=== PATIENT | male | born 1955 | race Caucasian/White ===

== ENCOUNTER → 2024-04-30 06:39 | Day surgery (SDC) | payer OTHER, SELFPAY | LOC: GI 06:39 | PROVIDERS: ATTENDING PHYSICIAN Internal Medicine Gastroenterology; FAMILY PHYSICIAN Internal Medicine | DX: Z12.11 Encounter for screening for malignant neoplasm of colon (principal); Z86.010 Personal history of colon polyps; K64.8 Other hemorrhoids; K57.30 Diverticulosis of large intestine without perforation or abscess without bleeding; K63.5 Polyp of colon; D12.2 Benign neoplasm of ascending colon; D12.3 Benign neoplasm of transverse colon; D12.5 Benign neoplasm of sigmoid colon; K62.1 Rectal polyp | CPT/HCPCS: 45385; 45380; 88305 ==

== ENCOUNTER 2024-11-05 08:15 | Inpatient (IN) | payer OTHER, SELFPAY ==
[2024-11-03 17:45] VITALS: BP 138/58
--- NOTE | 2024-11-03 17:54 | ED.GENMED ---
ED Provider Triage
<Ej Chamberlain Jr., PA-C - Last Filed: 11/04/24 18:25>
-
Patient seen by provider in Triage?: Seen in Triage
Attestation: A medical screening examination has been initiated by a qualified medical provider. Based on the assessment performed at this time, it has been determined that an emergent medical condition may exist and the patient has been informed
that further medical evaluation and possible additional diagnostic testing may be needed.
HPI: 69-year-old male presenting to the emergency department today with concerns of left pelvic and left lower abdominal discomfort over the past 2 days. Has a history of hernia and believes this could be a hernia at this point. No obvious
palpable hernia on examination but does have significant discomfort to the left lower quadrant and left suprapubic region. Plan for CT scan for further assessment.
GENERAL: Alert , in no apparent distress
EYE: No visual abnormalities.
NECK: Trachea midline
ENT: No visible abnormalities.
LUNGS: No acute respiratory distress
NEUROLOGICAL: Alert and oriented
SKIN: Skin intact. No visible changes.
MUSCULOSKELETAL: Moving extremities normally
PSYCH: Normal and appropriate interaction.
This is a medical evaluation conducted in person to initiate diagnostic evaluation and provide initial therapeutics. Please see further documentation by the treating clinician.
History of Present Illness
<Ej Chamberlain Jr., PA-C - Last Filed: 11/04/24 18:25>
General
Chief Complaint: Abdominal Symptoms
Time Seen by Provider: 11/03/24 21:24
<MARTHA Viera - Last Filed: 11/04/24 00:05>
General
Source: patient
Exam Limitations: none
Nursing documentation reviewed up to this point in time: agreed with
History of Present Illness
History of Present Illness:
Patient is a 69-year-old male with past medical history of MDS multiple hernias cholecystectomy who presents to the ER for evaluation of left groin pain. Patient reports on Saturday, 2 days ago he was moving his bowels and felt pain while moving his
bowels into his left groin.
He denies any burning with urination or frequency. He denies any hematuria. He saw his family doctor today and was sent to rule out a possible incarcerated hernia. He reports pain occurs with movement.
He denies any fever or chills. He does have some recent lower back issues/back pain and is a patient of Dr. Hurd at this time. He has been on muscle relaxers. He does complain of back pain presently as well. He however does not feel that this
groin pain radiates from his back. He denies any radiation into his legs. He denies any bowel or bladder incontinence. He reports area is very tender to touch.
Past History
<Ej Chamberlain Jr., PA-C - Last Filed: 11/04/24 18:25>
Past History
ED Past Medical History: Other (Kidney stones)
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
Social History
Tobacco: Smoker
Alcohol: None
Drug: None
Personal: Single
Living: with family
Employment: Other
Family History
Family History: Other
Review of Systems
<MARTHA Viera - Last Filed: 11/04/24 00:05>
Review of Systems
Allergies reviewed?: Yes
All Other Systems: ROS reviewed and negative except as documented in HPI and ROS
Constitutional: Reports no symptoms
Cardiac: Reports no symptoms
ABD/GI: Reports abdominal pain and other (pain in left groin ); Denies nausea or vomiting
: Reports other
Musculoskeletal: Reports no symptoms
Skin: Reports no symptoms
Neurological: Reports no symptoms
Psychiatric: Reports no symptoms
Phy Exam
<MARTHA Viera - Last Filed: 11/04/24 00:05>
General Physical Exam
General Presentation: well appearing
General age: appears stated age
General Skin: warm and dry
General Habitus: normal
General Mental: alert
General Hydration: appears well hydrated
Gastrointestinal Exam
Gastrointestinal Exam: soft and other (+ point tender to left groin region )
Neurological Exam
Neurological Exam: alert and oriented x3
Musculoskeletal Exam
Musculoskeletal Exam: full ROM
Course
<Ej Chamberlain Jr., PA-C - Last Filed: 11/04/24 18:25>
Orders/Labs/Results
Orders:
Orders
11/03/24 17:54
CT Abd/Pel (IV only)-[facility] only Urgent
Comment:
Reason For Exam: left abd/pel pain hx of hernia
11/03/24 18:03
Complete Blood Count/With Diff Urgent
Lactic Acid Urgent
11/03/24 18:04
Comprehensive Metabolic Panel Urgent
11/03/24 18:17
Urinalysis Reflex To Culture Urgent
Date Specimen was Collected: 11/03/24
Time Specimen was Collected: 18:17
Urine Microscopic Reflex Cult Urgent
Urine Culture Urgent
JACKELINE Source: U
Specimen Description:
Date Specimen was Collected: 11/03/24
Time Specimen was Collected: 18:17
11/03/24 21:49
Ketorolac [Toradol] 30 mg IV NOW STA
11/03/24 22:51
Morphine Sulfate 4 mg IV NOW STA
11/03/24 22:53
UA Reflex to Culture [Urinalysis Reflex To Culture] Urgent
Date Specimen was Collected: 11/03/24
Time Specimen was Collected: 22:52
Urine Microscopic Reflex Cult Urgent
11/04/24 00:05
Admit/Transfer Patient As Directed
Co-Sign Provider:
Level of Care: Observation services
Assign to:: Medical/Surgical
Physician / Group: hospitalist
Diagnosis: ambulatory dysfunction
Code Status As Directed
Resuscitation Status: Full Code
PRN Pain Medication Management As Directed
May give lesser potent ordered pain med per pt: Yes
preference::
Protocol:: Medication orders for pain may be administered in a
manner that supports deferring to patient preference
when the pt is:
- Requesting an ordered lesser potent pain medication.
Least to most potent pain medications are defined
as: acetaminophen < NSAID < tramadol < opioids
(morphine, oxycodone, hydromorphone).
- Requesting a lesser dose of the same medication IF
ORDERED.
- Requesting a less intrusive route of administration
if both routes are prescribed by the provider (PO <
IV).
11/04/24 00:35
Acetaminophen [Tylenol] 650 mg PO Q4HPRN PRN
Bisacodyl [Dulcolax] 10 mg RECTAL [id number] PRN
Docusate W/Senna [Senokot-S] 1 tablet PO BIDPRN PRN
HYDROmorphone [Dilaudid] 0.5 mg IV Q4HPRN PRN
Ketorolac [Toradol] 10 mg IV Q6HPRN PRN
Ondansetron Injectable [Zofran] 4 mg IV Q6HPRN PRN
Polyethylene Glycol Powder [Miralax] 17 grams PO DAILYPRN PRN
11/04/24 00:35
Activity As Directed
Activity Level: With Assistance
Vital Signs As Directed
Frequency: Per unit guidelines
Pt Eval And Treat Routine
Activity Level: With Assistance
DX Deep Vein Thrombosis Video Routine
11/04/24 01:00
Flush (0.9% Sodium Chloride) [Flush (Nss)] See Dose Instructions IV PER PROTOCOL
11/04/24 Breakfast
Regular
At Your Request: Full Participation
11/04/24 06:22
Basic Metabolic Panel IN AM
Complete Blood Count/No Diff IN AM
Ferritin IN AM
Iron IN AM
TSH IN AM
Total Iron Binding IN AM
Vitamin B12 IN AM
11/04/24 08:00
Bupropion(24Hr)Extended Releas [WELLBUTRIN XL (24 hour extended release)] 300 mg PO DAILY
Pantoprazole [Protonix] 40 mg PO BID
11/04/24 18:00
Enoxaparin Sodium [Lovenox] 40 mg SC QPM
Tamsulosin [Flomax] 0.4 mg PO QPM
Abnormal Lab Results
11/03/24 11/03/24 11/03/24
18:03 18:04 18:17
RBC 2.43 L 10^6/uL
(4.70-6.10)
Hgb 8.3 L g/dL
(13.0-18.0)
Hct 25.4 L %
(39.0-52.0)
MCV 104.5 H fL
(80.0-94.0)
MCH 34.2 H pg
(27.0-31.0)
MCHC 32.7 L g/dL
(33.0-37.0)
RDW 26.5 H %
(11.5-14.5)
Absolute Monos (auto) 0.8 H 10^3/uL
(0.1-0.6)
Monocytes % 10.0 H %
(1.7-9.3)
Sodium 134 L mmol/L
(135-145)
BUN 21 H mg/dl
(9-20)
Glucose 105 H mg/dl
(70-99)
Ur Occult Blood Reflex 2+ A
(Negative)
Urine Urobilinogen 2+ A
(Neg - 1+)
Leukocyte Esterase Rfl 1+ A
(Negative)
Urine RBC 3-6 A /HPF
(0-2)
Urine Bacteria (Reflex) Few A
(Negative)
Urine Albumin (Reflex) 2+ A
(Neg - Trace)
11/03/24
22:53
RBC
Hgb
Hct
MCV
MCH
MCHC
RDW
Absolute Monos (auto)
Monocytes %
Sodium
BUN
Glucose
Ur Occult Blood Reflex 2+ A
(Negative)
Urine Urobilinogen 2+ A
(Neg - 1+)
Leukocyte Esterase Rfl
Urine RBC 7-10 A /HPF
(0-2)
Urine Bacteria (Reflex) Few A
(Negative)
Urine Albumin (Reflex) 1+ A
(Neg - Trace)
11/03/24 18:03
11/03/24 18:04
Vital Signs
Initial and Last Documented VS:
Initial Vital Signs
Temp Pulse Resp BP Pulse Ox
98.2 F 80 20 138/58 95
11/03/24 17:45 11/03/24 17:45 11/03/24 17:45 11/03/24 17:45 11/03/24 17:45
Last Documented Vital Signs
Temp Pulse Resp BP Pulse Ox
97.6 F 78 16 128/55 94
11/04/24 14:55 11/04/24 14:55 11/04/24 14:55 11/04/24 14:55 11/04/24 14:55
<MARTHA Viera - Last Filed: 11/04/24 00:05>
Orders/Labs/Results
Orders:
Orders
11/03/24 17:54
CT Abd/Pel (IV only)-[facility] only Urgent
Comment:
Reason For Exam: left abd/pel pain hx of hernia
11/03/24 18:03
Complete Blood Count/With Diff Urgent
Lactic Acid Urgent
11/03/24 18:04
Comprehensive Metabolic Panel Urgent
11/03/24 18:17
Urinalysis Reflex To Culture Urgent
Date Specimen was Collected: 11/03/24
Time Specimen was Collected: 18:17
Urine Microscopic Reflex Cult Urgent
Urine Culture Urgent
JACKELINE Source: U
Specimen Description:
Date Specimen was Collected: 11/03/24
Time Specimen was Collected: 18:17
11/03/24 21:49
Ketorolac [Toradol] 30 mg IV NOW STA
11/03/24 22:51
Morphine Sulfate 4 mg IV NOW STA
11/03/24 22:53
UA Reflex to Culture [Urinalysis Reflex To Culture] Urgent
Date Specimen was Collected: 11/03/24
Time Specimen was Collected: 22:52
Urine Microscopic Reflex Cult Urgent
11/04/24 00:05
Admit/Transfer Patient As Directed
Co-Sign Provider:
Level of Care: Observation services
Assign to:: Medical/Surgical
Physician / Group: hospitalist
Diagnosis: ambulatory dysfunction
Code Status As Directed
Resuscitation Status: Full Code
PRN Pain Medication Management As Directed
May give lesser potent ordered pain med per pt: Yes
preference::
Protocol:: Medication orders for pain may be administered in a
manner that supports deferring to patient preference
when the pt is:
- Requesting an ordered lesser potent pain medication.
Least to most potent pain medications are defined
as: acetaminophen < NSAID < tramadol < opioids
(morphine, oxycodone, hydromorphone).
- Requesting a lesser dose of the same medication IF
ORDERED.
- Requesting a less intrusive route of administration
if both routes are prescribed by the provider (PO <
IV).
11/04/24 00:35
Acetaminophen [Tylenol] 650 mg PO Q4HPRN PRN
Bisacodyl [Dulcolax] 10 mg RECTAL [id number] PRN
Docusate W/Senna [Senokot-S] 1 tablet PO BIDPRN PRN
HYDROmorphone [Dilaudid] 0.5 mg IV Q4HPRN PRN
Ketorolac [Toradol] 10 mg IV Q6HPRN PRN
Ondansetron Injectable [Zofran] 4 mg IV Q6HPRN PRN
Polyethylene Glycol Powder [Miralax] 17 grams PO DAILYPRN PRN
11/04/24 00:35
Activity As Directed
Activity Level: With Assistance
Vital Signs As Directed
Frequency: Per unit guidelines
Pt Eval And Treat Routine
Activity Level: With Assistance
DX Deep Vein Thrombosis Video Routine
11/04/24 01:00
Flush (0.9% Sodium Chloride) [Flush (Nss)] See Dose Instructions IV PER PROTOCOL
11/04/24 Breakfast
Regular
At Your Request: Full Participation
11/04/24 06:22
Basic Metabolic Panel IN AM
Complete Blood Count/No Diff IN AM
Ferritin IN AM
Iron IN AM
TSH IN AM
Total Iron Binding IN AM
Vitamin B12 IN AM
11/04/24 08:00
Bupropion(24Hr)Extended Releas [WELLBUTRIN XL (24 hour extended release)] 300 mg PO DAILY
Pantoprazole [Protonix] 40 mg PO BID
11/04/24 18:00
Enoxaparin Sodium [Lovenox] 40 mg SC QPM
Tamsulosin [Flomax] 0.4 mg PO QPM
Abnormal Lab Results
11/03/24 11/03/24 11/03/24
18:03 18:04 18:17
RBC 2.43 L 10^6/uL
(4.70-6.10)
Hgb 8.3 L g/dL
(13.0-18.0)
Hct 25.4 L %
(39.0-52.0)
MCV 104.5 H fL
(80.0-94.0)
MCH 34.2 H pg
(27.0-31.0)
MCHC 32.7 L g/dL
(33.0-37.0)
RDW 26.5 H %
(11.5-14.5)
Absolute Monos (auto) 0.8 H 10^3/uL
(0.1-0.6)
Monocytes % 10.0 H %
(1.7-9.3)
Sodium 134 L mmol/L
(135-145)
BUN 21 H mg/dl
(9-20)
Glucose 105 H mg/dl
(70-99)
Ur Occult Blood Reflex 2+ A
(Negative)
Urine Urobilinogen 2+ A
(Neg - 1+)
Leukocyte Esterase Rfl 1+ A
(Negative)
Urine RBC 3-6 A /HPF
(0-2)
Urine Bacteria (Reflex) Few A
(Negative)
Urine Albumin (Reflex) 2+ A
(Neg - Trace)
11/03/24
22:53
RBC
Hgb
Hct
MCV
MCH
MCHC
RDW
Absolute Monos (auto)
Monocytes %
Sodium
BUN
Glucose
Ur Occult Blood Reflex 2+ A
(Negative)
Urine Urobilinogen 2+ A
(Neg - 1+)
Leukocyte Esterase Rfl
Urine RBC 7-10 A /HPF
(0-2)
Urine Bacteria (Reflex) Few A
(Negative)
Urine Albumin (Reflex) 1+ A
(Neg - Trace)
11/03/24 18:03
11/03/24 18:04
Vital Signs
Initial and Last Documented VS:
Initial Vital Signs
Temp Pulse Resp BP Pulse Ox
98.2 F 80 20 138/58 95
11/03/24 17:45 11/03/24 17:45 11/03/24 17:45 11/03/24 17:45 11/03/24 17:45
Last Documented Vital Signs
Temp Pulse Resp BP Pulse Ox
97.6 F 78 16 128/55 94
11/04/24 14:55 11/04/24 14:55 11/04/24 14:55 11/04/24 14:55 11/04/24 14:55
Healthcare Manager consulted with Physician
Healthcare Manager consulted with physician?: Yes
Name of Physician Consulted: DR Nielsen
<Gustavo Nielsen, DO - Last Filed: 11/03/24 21:55>
Orders/Labs/Results
Orders:
Orders
11/03/24 17:54
CT Abd/Pel (IV only)-[facility] only Urgent
Comment:
Reason For Exam: left abd/pel pain hx of hernia
11/03/24 18:03
Complete Blood Count/With Diff Urgent
Lactic Acid Urgent
11/03/24 18:04
Comprehensive Metabolic Panel Urgent
11/03/24 18:17
Urinalysis Reflex To Culture Urgent
Date Specimen was Collected: 11/03/24
Time Specimen was Collected: 18:17
Urine Microscopic Reflex Cult Urgent
Urine Culture Urgent
JACKELINE Source: U
Specimen Description:
Date Specimen was Collected: 11/03/24
Time Specimen was Collected: 18:17
11/03/24 21:49
Ketorolac [Toradol] 30 mg IV NOW STA
11/03/24 22:51
Morphine Sulfate 4 mg IV NOW STA
11/03/24 22:53
UA Reflex to Culture [Urinalysis Reflex To Culture] Urgent
Date Specimen was Collected: 11/03/24
Time Specimen was Collected: 22:52
Urine Microscopic Reflex Cult Urgent
11/04/24 00:05
Admit/Transfer Patient As Directed
Co-Sign Provider:
Level of Care: Observation services
Assign to:: Medical/Surgical
Physician / Group: hospitalist
Diagnosis: ambulatory dysfunction
Code Status As Directed
Resuscitation Status: Full Code
PRN Pain Medication Management As Directed
May give lesser potent ordered pain med per pt: Yes
preference::
Protocol:: Medication orders for pain may be administered in a
manner that supports deferring to patient preference
when the pt is:
- Requesting an ordered lesser potent pain medication.
Least to most potent pain medications are defined
as: acetaminophen < NSAID < tramadol < opioids
(morphine, oxycodone, hydromorphone).
- Requesting a lesser dose of the same medication IF
ORDERED.
- Requesting a less intrusive route of administration
if both routes are prescribed by the provider (PO <
IV).
11/04/24 00:35
Acetaminophen [Tylenol] 650 mg PO Q4HPRN PRN
Bisacodyl [Dulcolax] 10 mg RECTAL [id number] PRN
Docusate W/Senna [Senokot-S] 1 tablet PO BIDPRN PRN
HYDROmorphone [Dilaudid] 0.5 mg IV Q4HPRN PRN
Ketorolac [Toradol] 10 mg IV Q6HPRN PRN
Ondansetron Injectable [Zofran] 4 mg IV Q6HPRN PRN
Polyethylene Glycol Powder [Miralax] 17 grams PO DAILYPRN PRN
11/04/24 00:35
Activity As Directed
Activity Level: With Assistance
Vital Signs As Directed
Frequency: Per unit guidelines
Pt Eval And Treat Routine
Activity Level: With Assistance
DX Deep Vein Thrombosis Video Routine
11/04/24 01:00
Flush (0.9% Sodium Chloride) [Flush (Nss)] See Dose Instructions IV PER PROTOCOL
11/04/24 Breakfast
Regular
At Your Request: Full Participation
11/04/24 06:22
Basic Metabolic Panel IN AM
Complete Blood Count/No Diff IN AM
Ferritin IN AM
Iron IN AM
TSH IN AM
Total Iron Binding IN AM
Vitamin B12 IN AM
11/04/24 08:00
Bupropion(24Hr)Extended Releas [WELLBUTRIN XL (24 hour extended release)] 300 mg PO DAILY
Pantoprazole [Protonix] 40 mg PO BID
11/04/24 18:00
Enoxaparin Sodium [Lovenox] 40 mg SC QPM
Tamsulosin [Flomax] 0.4 mg PO QPM
Abnormal Lab Results
11/03/24 11/03/24 11/03/24
18:03 18:04 18:17
RBC 2.43 L 10^6/uL
(4.70-6.10)
Hgb 8.3 L g/dL
(13.0-18.0)
Hct 25.4 L %
(39.0-52.0)
MCV 104.5 H fL
(80.0-94.0)
MCH 34.2 H pg
(27.0-31.0)
MCHC 32.7 L g/dL
(33.0-37.0)
RDW 26.5 H %
(11.5-14.5)
Absolute Monos (auto) 0.8 H 10^3/uL
(0.1-0.6)
Monocytes % 10.0 H %
(1.7-9.3)
Sodium 134 L mmol/L
(135-145)
BUN 21 H mg/dl
(9-20)
Glucose 105 H mg/dl
(70-99)
Ur Occult Blood Reflex 2+ A
(Negative)
Urine Urobilinogen 2+ A
(Neg - 1+)
Leukocyte Esterase Rfl 1+ A
(Negative)
Urine RBC 3-6 A /HPF
(0-2)
Urine Bacteria (Reflex) Few A
(Negative)
Urine Albumin (Reflex) 2+ A
(Neg - Trace)
11/03/24
22:53
RBC
Hgb
Hct
MCV
MCH
MCHC
RDW
Absolute Monos (auto)
Monocytes %
Sodium
BUN
Glucose
Ur Occult Blood Reflex 2+ A
(Negative)
Urine Urobilinogen 2+ A
(Neg - 1+)
Leukocyte Esterase Rfl
Urine RBC 7-10 A /HPF
(0-2)
Urine Bacteria (Reflex) Few A
(Negative)
Urine Albumin (Reflex) 1+ A
(Neg - Trace)
11/03/24 18:03
11/03/24 18:04
Vital Signs
Initial and Last Documented VS:
Initial Vital Signs
Temp Pulse Resp BP Pulse Ox
98.2 F 80 20 138/58 95
11/03/24 17:45 11/03/24 17:45 11/03/24 17:45 11/03/24 17:45 11/03/24 17:45
Last Documented Vital Signs
Temp Pulse Resp BP Pulse Ox
97.6 F 78 16 128/55 94
11/04/24 14:55 11/04/24 14:55 11/04/24 14:55 11/04/24 14:55 11/04/24 14:55
<MARTHA Viera - Last Filed: 11/04/24 00:05>
MDM/Problems Addressed
MDM/Problems Addressed:
As documented patient is a 6-year-old male with MDS sent by family doctor for left groin pain to rule out incarcerated hernia. Patient was straining to have bowel movement 2 days ago and since then has had pain in his left groin on exam he is very
tender however there palpable bulge and CAT scan is negative for hernia. In addition patient complains of low back pain and has been seen by Vannessa. No recent injury. He was given muscle relaxers by Dr. Hurd taking ibuprofen. CAT scan does
show an L1 compression new from 2023. Pt was eval by ED physician given toradol and morphine however still complaining of pain and not able to walk because of pain pain is both in his back and in his groin. no fever. no erythema to groin. UA neg
for infection
<MARTHA Viera - Last Filed: 11/04/24 00:05>
*Radiology
Radiology exam reviewed: radiology read reviewed
*Pulse Oximetry
Patient hypoxic: no
*Critical Care Note
Total Time (30-74mins, 75-104mins- exclusive of procedures): Not Applicable
ED Attending Note
<Ej Chamberlain Jr., PA-C - Last Filed: 11/04/24 18:25>
-
Portions of this chart may have been created with voice recognition software.� Occasional wrong word or��sound alike� substitutions may have occurred due to the inherent limitations of voice recognition software.
<Gustavo Nielsen, DO - Last Filed: 11/03/24 21:55>
ED Attending Note
Patient seen and examined by attending physician: Yes
I performed the substantive portion of visit, reviewed & personally made and approve the management plan that is documented in note by myself or DONNA.: Yes
ED Attending Note:
I have seen and evaluated the patient with a [id number] encounter. I have spoken to the advance practicer provider and involved in the medical history, the physical exam, medical decision making.
Evaluation and management service: agree unless noted differently below.
Results interpretation: agree unless noted differently below.
Focused HPI: 69-year-old male presenting with left lower abdominal pain. This occurred while he was straining to defecate. He followed up with PCP and was sent in to rule out incarcerated hernia
Physical exam: Uncomfortable. Point tenderness to left suprapubic region. No skin changes
Medical Decision Making: CT negative for any evidence of hernia. We discussed incidental L1 fracture and constipation. We discussed likely muscle strain and discussed MiraLAX and stool softeners. He is already followed by pain management for his
L1 fracture
Discharge Plan
Departure
Patient Disposition: Admit
Date of Disposition: 11/04/24
Time of Disposition: 00:04
Admit to: Med/Surg
Admit to doctor: hospitalist
Presentation/result/management discussed w/ accepting MD/DO: Hospitalist
Patient with high blood pressure during this ER visit?: Yes
Condition: Fair
Covid-19: Not Applicable
Discharge Problem:
Low back pain, right groin pain
Interventions
Interventions:
*Risk Screen - Suicide Last Done: 11/03/24 17:45
*General Assessment Last Done: 11/03/24 17:45
*Neglect/Abuse Screening Last Done: 11/03/24 17:45
ED- Fall Risk Assessment Last Done: 11/03/24 23:26
*ED COVID-19 Vaccine History Last Done: 11/03/24 23:26
*Nursing Disposition Last Done: 11/04/24 00:38
[facility] Assessment Last Done: 11/03/24 21:26
Discharge Date and Time
Discharge Date/Time: 11/04/24 00:59
[2024-11-03 18:25] LABS: Lactic Acid 0.8 mmol/L (0.7-2.0)
[2024-11-03 18:27] LABS: ALT (SGPT) 18 U/L (0-50); AST (SGOT) 21 U/L (17-59); Albumin 4.6 g/dl (3.5-5.0); Alkaline Phosphatase 67 U/L (38-126); Blood Urea Nitrogen 21 mg/dl (9-20); Carbon Dioxide 27 mmol/L (22-30); Chloride 101 mmol/L (98-107); Glucose 105 mg/dl (70-99); Potassium 3.9 mmol/L (3.5-5.1); Sodium 134 mmol/L (135-145); Total Bilirubin 0.8 mg/dl (0.2-1.3); Total Protein 6.5 g/dl (6.3-8.2); eGFR > 60.00
[2024-11-03 18:30] LABS: Urine Albumin 2+ (Neg - Trace); Urine Bilirubin Negative (Negative); Urine Character Clear (Clear); Urine Color Yellow; Urine Glucose Negative (Negative); Urine Ketone Negative (Negative); Urine Leukocyte 1+ (Negative); Urine Nitrite Negative (Negative); Urine Occult Blood 2+ (Negative); Urine Specific Gravity 1.025 (<1.030); Urine Urobilinogen 2+ (Neg - 1+)
[2024-11-03 18:31] LABS: Hematocrit 25.4 % (39.0-52.0); Hemoglobin 8.3 g/dL (13.0-18.0); Mean Corp Hgb Conc. 32.7 g/dL (33.0-37.0); Mean Corpuscular Hgb 34.2 pg (27.0-31.0); Mean Corpuscular Volume 104.5 fL (80.0-94.0); Platelet Count 350 10^3/uL (130-400); Red Blood Cell Count 2.43 10^6/uL (4.70-6.10); Red Cell Dist. Width 26.5 % (11.5-14.5); White Blood Cell Count 7.7 10^3/uL (4.8-10.8)
[2024-11-03 18:45] LABS: % Basophils 0.8 % (0-2); % Eosinophils 2.2 % (0-6); % Immature Granulocytes 0.5 % (0-0.5); % Lymphocytes 26.7 % (20.5-51.1); % Neutrophils 59.8 % (42.2-75.2); Absolute Basophils 0.1 10^3/uL (0-0.2); Absolute Eosinophils 0.2 10^3/uL (0-0.7); Absolute Lymphocytes 2.1 10^3/uL (1.2-3.4); Absolute Monocytes 0.8 10^3/uL (0.1-0.6); Absolute Neutrophils 4.6 10^3/uL (1.4-6.5); Nucleated Red Blood Cells % 0.5 % (-)
[2024-11-03 18:46] LABS: Anisocytosis 2+; Macrocytosis 3+; Normal RBC Morphology No
[2024-11-03 18:47] LABS: Hypochromasia 1+; Ovalocytes 1+; Tear Drop Red Blood Cells Occasional
[2024-11-03 19:47] LABS: Urine Bacteria Few (Negative)
[2024-11-03 20:11] VITALS: BP 154/75
[2024-11-03 21:24] VITALS: BP 136/92
[2024-11-03] MEDS: TORADOL 30 MG IV (22:01)
[2024-11-03] MEDS: MORPHINE SULFATE 4 MG IV (22:56)
[2024-11-03 23:06] LABS: Urine Albumin 1+ (Neg - Trace); Urine Bilirubin Negative (Negative); Urine Character Clear (Clear); Urine Color Yellow; Urine Glucose Negative (Negative); Urine Ketone Negative (Negative); Urine Leukocyte Negative (Negative); Urine Nitrite Negative (Negative); Urine Occult Blood 2+ (Negative); Urine Urobilinogen 2+ (Neg - 1+)
[2024-11-03 23:18] LABS: Urine Squamous Cell 16-20 /LPF (Few)
[2024-11-03 23:19] LABS: Urine Bacteria Few (Negative); Urine White Cell 0-2 /HPF (0-5)
[2024-11-03 23:28] VITALS: BP 141/94
[2024-11-03 23:57] VITALS: BP 136/91
--- NOTE | 2024-11-04 00:12 | EDRN ---
This RN and an assisting RN attempted to ambulate pt. using a walker. Pt. does not usually use assistive devices at home, but does state, 'I use the furniture to help me get around'. Pt. required 2 RN assist to simply stand from stretcher to bed,
was unsteady while standing, and stated, 'I can't stand very long, my legs have been weak and I need to sit down'. Pt. unable to ambulate w/ walker, provider aware.
[2024-11-04 01:00] VITALS: BP 140/69
[2024-11-04] MEDS: TORADOL 10 MG IV ×2 (01:30→08:30)
--- NOTE | 2024-11-04 02:53 | PTCARENOTE ---
Patient arrived to unit from ED via stretcher. Patient pulled over from stretcher to bed in room 318-1 on . Pt. AAOx3 and able to make needs known. C/o back pain. See NOV. Oriented to room. Call manjarrez within reach. Plan of care ongoing.
--- NOTE | 2024-11-04 02:54 | DOWNTIME ---
There was a [employer] Deputy Juvenile Officer Downtime on 11/04/2024 from 0100 to 11/04/2023 at 0235 . Downtime documentation of patient's care, including medication administrations, has been reconciled in the electronic record per guidelines. Refer to the
patient's paper chart under the miscellaneous tab to see printed paper medication records and downtime forms.
--- NOTE | 2024-11-04 03:49 | HPS.HSE ---
Family Physician
-
Family Physician: Dung De Dios
Chief Complaint
-
back pain
History of Present Illness
This is a 69-year-old male with extensive past medical history including history of myelodysplastic syndrome, irritable bowel syndrome, GERD, nephrolithiasis, abdominal surgery status post lysis of adhesions, anemia secondary to MDS presenting to
the emergency department
with groin pain and then back pain.
Patient reported left groin pain for about 3 days. This started after having mild constipation and a bowel movement. He reports the pain was But localizes to the left groin and nonradiating. He denies any dysuria. He denies any hematuria. He
denies any scrotal enlargement. He denies any abdominal distention. Patient reports history of hernias in the past status post multiple surgeries on the inguinal hernias bilaterally. He has not had any issues since surgery for over 20 years. He
followed up with his primary care physician will recommended that he go to the emergency department to rule out incarcerated hernia.
Patient has chronic back pain status post lumbar laminectomy and says he follows with pain specialist Dr. Hurd. He had with steroid injection (epidural injection?) by Dr. Hurd. He was started on muscle relaxants and sleeping adjustment which
has improved his pain symptoms but there is still persistent. He reports mild weakness in his lower extremities bilaterally. Denies any numbness or tingling.
He denies any bladder or bowel incontinence.
In the emergency department he was febrile, hemodynamically stable with a blood pressure of 140/69 and a pulse of 90. She oxygen saturation was 98% on room air. CBC was unremarkable anergy from prior with chronic anemia hemoglobin of 8.3 similar
to prior. Electrolytes BUN/creatinine were stable. There was no evidence of bowel incarceration or inguinal hernia, there was mild to moderate distention of the rectum with stool, transverse dimension of 5.1 cm. No evidence for stercoral colitis.
Moderate amount of stool throughout the colon, suggesting a degree of constipation.
Inferior endplate compression deformity of L1, which is new from examination of September 18, 2023. Morphologically, appears to be an acute to subacute fracture.
Medical History
Past Medical History
Past Medical History: Reports Other (MDS, Renal stones )
Past Surgical History: Reports Other ((Cholecystectomy, hernia repair, spinal decompression L3 L5, left knee replacement, Bone marrow biopsy 06/2022))
Additional Past Surgical History:
Multiple bilateral inguinal hernia repairs
Social History
Tobacco: Smoker (09/17 PPD )
Alcohol: None
Drug: None
Personal: Single
Living: With Family
Employment: Retired
Family History
Family History: Not pertinent and Other (Mother, brother DM 2, father and mother CAD))
Allergies / Home Medications
Allergies reflects when Allergies were last updated in [facility].
Home Medications with original date entered in [facility]
Allergy/Medication List:
Allergies
Allergy/AdvReac Type Severity Reaction Status Date / Time
No Known Allergies Allergy Verified 11/03/24 17:51
Home Medications
cholecalciferol (vitamin D3) 25 mcg (1,000 unit) capsule (Vitamin D3) 125 mcg PO QPM Supplement 06/25/22
dicyclomine 20 mg tablet 20 mg PO TID Gastrointestinal issue 06/25/22
kmsilfef-eh-ywwtc 300 mcg-K 60 mcg-lycop 600 mcg-lutein 300 mcg tablet (Centrum Silver Men) 1 tab PO QPM Supplement 06/25/22
omega-3 360 mg-dha 144 mg-epa 216 mg-fish oil 1,200 mg capsule,del rel (Fish Oil) 1 cap PO BID Supplement 06/25/22
omeprazole 20 mg tablet,delayed release 20 mg PO DAILY Gastrointestinal issue 06/25/22
vit C 250 mg-vit E 90 mg-zinc 40 mg-copper 1 nb-nwcewr-desnrw capsule (PreserVision AREDS-2) 1 cap PO DAILY Supplement 06/25/22
bupropion HCl 150 mg 24 hr tablet, extended release 300 mg PO DAILY Depression 01/22/23
Fiber Therapy (ca polycarboph) 2 cap PO BID Supplement 03/05/23
darbepoetin juana in polysorbat 25 mcg/mL in polysorbate injection (Aranesp) 50 mcg SC .[id number] anemia 03/05/23
magnesium aspartate-potassium aspartate 250 mg-250 mg capsule 1 cap PO BID Supplement 03/05/23
meloxicam 15 mg tablet 15 mg PO DAILY Pain 03/25/23
ascorbic acid (vitamin C) 1,000 mg tablet,extended release (Vitamin C ER) 1,000 mg PO DAILY 11/04/24
cyclobenzaprine 10 mg tablet 10 mg PO HS 11/04/24
finasteride 5 mg tablet 5 mg PO DAILY 11/04/24
linaclotide 72 mcg capsule (Linzess) 72 mcg PO DAILY 11/04/24
Review of Systems
-
History Source: Patient
Constitutional: Reports No Symptoms
EENT: Reports No Symptoms
Respiratory: Reports No Symptoms
Cardiac: Reports No Symptoms
Abdomen/GI: Reports Abdominal Pain
: Reports No Symptoms
Musculoskeletal: Reports Joint Pain
Skin: Reports No Symptoms
Neurological: Reports No Symptoms
Endocrine: Reports No Symptoms
Hematologic/Lymphatic: Reports No Symptoms
Psych: Reports No Symptoms
Physical Exam
Vital Signs
Vital Signs
Temp Pulse Resp BP Pulse Ox
98.6 F 93 14 140/69 97
11/04/24 01:00 11/04/24 01:00 11/04/24 01:00 11/04/24 01:00 11/04/24 01:00
Physical Exam
General: Well Developed, Well Nourished and No Apparent Distress
HEENT: NormoCephalic, Anicteric and Moist mucous membranes
Respiratory: Clear
Cardiac: S1/S2 and Regular Rhythm
Breast: Deferred by me
GI: Soft, Non Tender, Non Distended, Normal Bowel Sounds and Other (No inguinal protuberance or nodules.)
Rectal: Deferred by Provider
Genito-urinary: Deferred by me
Musculoskeletal: No Clubbing, No Cyanosis, Edema, Left Lower Extremity (Trace) and Edema, Right Lower Extremity (Trace)
Skin: Warm
Neuro: AO x 3, No Motor Deficits, Cranial Nerves Intact and Other (loss of differentiation of warm and cold on the left feet)
Psych: Calm
Laboratory Results
-
Laboratory Results
Lactic Acid 0.8 mmol/L (0.7-2.0) 11/03/24 18:03
Total Bilirubin 0.8 mg/dl (0.2-1.3) 11/03/24 18:04
AST 21 U/L (17-59) 11/03/24 18:04
ALT 18 U/L (0-50) 11/03/24 18:04
Alkaline Phosphatase 67 U/L (38-126) 11/03/24 18:04
Data Reviewed
-
CT Scan: Report Reviewed by me
Lab Data: Labs Reviewed by me
Old Records: Reviewed
Impression/Plan
-
IMPRESSION:
69-year-old with irritable bowel syndrome and myelodysplastic syndrome with chronic anemia, GERD, history of nephrolithiasis presenting to the emergency department with 3 days of left inguinal pain and chronic back pain. CT of the abdomen/pelvis
rules out strangulated inguinal hernia. There is no evidence of any hernia on the CT scan. He does have constipation with moderate stool burden which may be the etiology of his abdominal discomfort. The pain is nonradiating. Back pain is chronic
and is being followed by Dr. 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 He is requesting some additional pain medications. He has a follow-up appointment in November 13 and wants to move the appointment up in the setting of the
new finding on CT scan showing a subacute endplate compression deformity at L1.
PLAN:
1. Inguinal pain - Improved but reports still feel sore. No inguinal abnormality on exam or imaging. Possibly hip arthritis
- admit to med/surg
- start bowel regimen
- antimetics
- pain control
2. Back pain - Chronic with subacute finding of L1 endpate compression deformity. No alarm signs. No radicular signs but reports chronic LE weakness
- continue flexeril hs prn
- reduce weight on back by sleeping on sides
- pain control with prn toradol for now
- dilaudid prn
- pt evaluation
3. MDS - Anemia on aranesp
- monitor for now
DVT PPX - lovenox sq
code status - full code
[2024-11-04] MEDS: DILAUDID 0.5 MG IV ×2 (03:56→10:42)
[2024-11-04] MEDS: TYLENOL 650 MG PO ×3 (05:35→13:58)
[2024-11-04] MEDS: LINZESS 72 MCG PO (06:42)
[2024-11-04 06:48] LABS: Hematocrit 22.4 % (39.0-52.0); Hemoglobin 7.6 g/dL (13.0-18.0); Mean Corp Hgb Conc. 33.9 g/dL (33.0-37.0); Mean Corpuscular Hgb 34.5 pg (27.0-31.0); Mean Corpuscular Volume 101.8 fL (80.0-94.0); Mean Platelet Volume 10.3 fL (7.4-10.4); Platelet Count 300 10^3/uL (130-400); Red Cell Dist. Width 26.1 % (11.5-14.5); White Blood Cell Count 6.7 10^3/uL (4.8-10.8)
[2024-11-04 07:01] VITALS: BP 124/48
[2024-11-04 07:08] LABS: Blood Urea Nitrogen 15 mg/dl (9-20); Calcium 8.4 mg/dl (8.4-10.2); Carbon Dioxide 29 mmol/L (22-30); Chloride 102 mmol/L (98-107); Glucose 114 mg/dl (70-99); Iron 97 ug/dl (49-181); Potassium 3.7 mmol/L (3.5-5.1); Sodium 137 mmol/L (135-145); eGFR > 60.00
[2024-11-04 07:18] LABS: Percent Saturation 40 % (20-50); Total Iron Binding Capacity 242 ug/dl (261-462)
[2024-11-04 07:32] LABS: TSH 2.92 uIU/ml (0.47-4.68)
[2024-11-04 07:50] LABS: Vitamin B12 828 pg/ml (239-931)
[2024-11-04] MEDS: WELLBUTRIN XL (24 hour extended release) 300 MG PO (08:30)
[2024-11-04] MEDS: PROSCAR 5 MG PO (08:30)
[2024-11-04] MEDS: PROTONIX 40 MG PO ×2 (08:30→21:05)
[2024-11-04] MEDS: PROTONIX 20 MG PO (08:31)
[2024-11-04] MEDS: FLUSH (NSS) 1 FLUSH IV ×2 (10:43→13:55)
--- NOTE | 2024-11-04 10:44 | CON.GI ---
Addendum entered and electronically signed by Shyann Gilbert Do, MD 11/04/24 16:41:
I saw and examined the patient.
The MACHINE COIL ASSEMBLER's note was reviewed and I agree with the note.
Comment: Shan is a 69yo M with h/o MDS, back pain and chronic constipation on Linzess who presents for back and LLQ groin pain. He feels that pain worsens post defecation. He did have MRI with L1 acute vs subacute fracture. Exam VS pale
appearing. mild TTP in LL groin area without any obvious defects. Labs reviewed. CTAP with notable for moderate stool burden
Impression
- Left lower groin abd pain
Suspect related to constipation, adhesions and or L1 acute vs subacute fracture
- MDS
- Back pain s/p surgery
- Chronic constipation
- h/o multiple inguinal hernia surgeries
- Adhesive disease
Recommendations
- Agree with bowel regimen. C/w linzess and miralax daily
- Monitor stool output
- AXR tomorrow AM
- Cold pack over LL groin and bentyl PRN
- C/w regular diet
Will follow with you
Original Note:
Consultation
-
Date/Time Consultation Requested: 11/04/24 1030
Date/Time Consultation Performed: 11/04/24 1040
Requesting Provider: Chirag Garcia MD
Performing Provider: MARTHA Roland, Shyann Julina MD
Reason for Consultation: LLQ pain, constipation
Medical History
Chief Complaint / HPI
Chief Complaint: LLQ pain
History of Present Illness:
Pt is a 69yo with hx MDS, arthritis, back pain prior lami, renal stones, hearing loss, b/l mastoid cavitis, anxiety/depression, UTI prior urosepsis, IBS, ruptured gallbladder with complicated post-op course, multiple inguinal hernia repair, exp
lap with AKIRA,BPH, brain abscess/craniotomy, diverticulosis, hemorrhoids , GERD with onset back and groin pain after BM 2 weeks ago. He was seen by ortho Dr. Hurd 10/30-- MRI 2022 reviewed with severe DDD L3-4. L4-5, prior lami at L4-5, right
subarticular stenosis L4-5, moderate canal narrowing L3-4 secondary to disc extrusion and recommended cyclobenzaprine, brace and trigger point injection completed. Pt also seen by PCP and sent to ER. On admission Ct completed with mild to moderate
distention of rectum with stool no stercoral colitis moderate stool in colon to suggest constipation. Pt also noted with L1 acute vs subacute fracture.
In review with patient he complaints of back pain into left groin worse with movement. He has some chronic balance issues. He also admits to chronic constipation with stool 1-2 per week. He takes Linzess 72mcg daily and fiber tablets. +
10-15 lbs intentional wt loss. He otherwise denies odynophagia, GERD, nausea/vomiting, abdominal pain, diarrhea, or rectal bleeding. hx Colonoscopy: 04/2024- [facility] - HP/TA polyps, diverticulosis and hemorrhoids. No anticoagulation + NSAID and
tylenol use with back pain.
Past Medical History
Past Medical History: Cancer (skin CA ), GERD, Psychiatric (anxiety, depression) and Other (arthritis, back pain, renal stones, hearing loss, b/l mastoid cavitis, MDS, UTI prior urosepsis, IBS, BPH, brain abscess, diverticulosis, hemorrhoids )
Past Surgical History: Cholecystectomy (gallbladder rupture with darryl with complicated course in [place] ), Orthopedic (lumbar lami, LTKR ), Tonsilectomy and Other (5 inguinal hernia surgeries, cataract surgery , mohs surgery for forehead skin
lesion, exp lap with AKIRA )
Social History
Tobacco: Smoker (09/19 PPD)
Alcohol: None
Drug: None
Living: With Family (sister )
Employment: Retired
Family History
Family History: Other (no family hx colon CA or polyps)
Allergies / Home Medications
Allergy/AdvReac Type Severity Reaction Status Date / Time
No Known Allergies Allergy Verified 11/03/24 17:51
�Medication �Instructions �Recorded
cholecalciferol (vitamin D3) 25 125 mcg PO QPM Supplement 06/25/22
mcg (1,000 unit) capsule (Vitamin
D3)
dicyclomine 20 mg tablet 20 mg PO TID Gastrointestinal issue 06/25/22
sfmnymem-aq-azgtq 300 mcg-K 60 1 tab PO QPM Supplement 06/25/22
mcg-lycop 600 mcg-lutein 300 mcg
tablet (Centrum Silver Men)
omega-3 360 mg-dha 144 mg-epa 216 1 cap PO BID Supplement 06/25/22
mg-fish oil 1,200 mg capsule,del
rel (Fish Oil)
omeprazole 20 mg tablet,delayed 20 mg PO DAILY Gastrointestinal 06/25/22
release issue
vit C 250 mg-vit E 90 mg-zinc 40 1 cap PO DAILY Supplement 06/25/22
mg-copper 1 zi-oznlej-iumrco
capsule (PreserVision AREDS-2)
bupropion HCl 150 mg 24 hr tablet, 300 mg PO DAILY Depression 01/22/23
extended release
Fiber Therapy (ca polycarboph) 2 cap PO BID Supplement 03/05/23
darbepoetin juana in polysorbat 25 50 mcg SC .[id number] anemia 03/05/23
mcg/mL in polysorbate injection
(Aranesp)
magnesium aspartate-potassium 1 cap PO BID Supplement 03/05/23
aspartate 250 mg-250 mg capsule
meloxicam 15 mg tablet 15 mg PO DAILY Pain 03/25/23
ascorbic acid (vitamin C) 1,000 mg 1,000 mg PO DAILY 11/04/24
tablet,extended release (Vitamin C
ER)
cyclobenzaprine 10 mg tablet 10 mg PO HS 11/04/24
finasteride 5 mg tablet 5 mg PO DAILY 11/04/24
linaclotide 72 mcg capsule 72 mcg PO DAILY 11/04/24
(Linzess)
Review of Systems
-
History Source: Patient
Constitutional: Reports Weight Loss (10-15 lbs )
EENT: Reports No Symptoms
Respiratory: Reports No Symptoms
Cardiac: Reports No Symptoms
Abdomen/GI: Reports Abdominal Pain and Constipated
Musculoskeletal: Reports Other (left groin and back pain)
Skin: Reports No Symptoms
Neurological: Reports Weakness
Endocrine: Reports No Symptoms
Hematologic/Lymphatic: Reports No Symptoms
Vital Signs
Temp Pulse Resp BP Pulse Ox
98.9 F 77 16 124/48 93
11/04/24 07:01 11/04/24 07:01 11/04/24 07:01 11/04/24 07:01 11/04/24 07:01
Physical Exam
Exam
General: Well Developed, Well Nourished and Other (some distress with groin and back pain)
HEENT: Normocephalic and Anicteric
Respiratory: Clear
Cardiac: Regular Rhythm
GI: Soft
Skin: Warm and Dry
Neuro: Awake, Alert and AO x 3
Psych: Calm
Results
WBC 6.7 10^3/uL (4.8-10.8) 11/04/24 06:22
Hgb 7.6 g/dL (13.0-18.0) L 11/04/24 06:22
Hct 22.4 % (39.0-52.0) L 11/04/24 06:22
MCV 101.8 fL (80.0-94.0) H 11/04/24 06:22
Plt Count 300 10^3/uL (130-400) 11/04/24 06:22
Absolute Neuts (auto) 4.6 10^3/uL (1.4-6.5) 11/03/24 18:03
Sodium 137 mmol/L (135-145) 11/04/24 06:22
Potassium 3.7 mmol/L (3.5-5.1) 11/04/24 06:22
Chloride 102 mmol/L (98-107) 11/04/24 06:22
Carbon Dioxide 29 mmol/L (22-30) 11/04/24 06:22
BUN 15 mg/dl (9-20) 11/04/24 06:22
Creatinine 0.7 mg/dL (0.7-1.3) 11/04/24 06:22
Calcium 8.4 mg/dl (8.4-10.2) 11/04/24 06:22
Total Bilirubin 0.8 mg/dl (0.2-1.3) 11/03/24 18:04
AST 21 U/L (17-59) 11/03/24 18:04
ALT 18 U/L (0-50) 11/03/24 18:04
Alkaline Phosphatase 67 U/L (38-126) 11/03/24 18:04
Diagnostic Image Results:
06/2023- abd X ray
There are very small calculi projected over both kidneys. There may be calculi which are missed due to much stool overlying the renal shadows.
There are 2 calculi in the pelvis. The more distal calculus is likely a phlebolith. The calculus which overlies the left sacrum could be within the ureter.
09/18/23 CT a/p without contrast
There are left-sided nonobstructing intrarenal calcifications. No hydronephrosis. No distal ureteral calcifications. No intrarenal calcifications on the right.
There is new pneumobilia. The patient is status post cholecystectomy and there are clips in the gallbladder fossa. No definite filling defect identified in the distal common bile duct. Did the patient Undergo ERCP? Is there a history of stent?
Differential includes possibility of a previously passed gallstone, history of previous sphincterotomy, or possible developing fistula. Ultrasound could be performed to evaluate for any filling defect within the common bile duct. If the ultrasound
is inconclusive, MRCP could be performed.
There is diffuse fatty infiltration of the liver. Solid organs otherwise unremarkable.
Diverticulosis. Appendix normal.
11/03/24-CT a/p IV only
Thin linear densities within the right lower lung, new since previous CT, likely linear atelectasis.
Mild to moderate distention of the rectum with stool, transverse dimension of 5.1 cm. No evidence for stercoral colitis. Moderate amount of stool throughout the colon, suggesting a degree of constipation.
Inferior endplate compression deformity of L1, which is new from examination of September 18, 2023. Morphologically, appears to be an acute to subacute fracture. Please correlate with localized symptoms.
Additional bony degenerative changes as described, fairly stable.
Splenic size is in the upper range of normal.
No evidence for bowel herniation. Specifically, no evidence for inguinal hernia.
There are 2 nephroliths present within the left kidney. No evidence for ureteral calculus.
Status post cholecystectomy, with no evidence for biliary ductal dilation.
Prior GI Procedures:
EGD: none
Colonoscopy: 04/2024- [facility]
- One 2 mm polyp in the ascending colon, removed with
a jumbo cold forceps. Resected and retrieved.
- One 2 mm polyp in the transverse colon, removed with
a jumbo cold forceps. Resected and retrieved.
- One 3 mm polyp in the descending colon, removed with
a jumbo cold forceps. Resected and retrieved.
- Five 4 to 8 mm polyps in the sigmoid colon, removed
with a cold snare. Resected and retrieved.
- Two 1 to 3 mm polyps in the rectum, removed with a
jumbo cold forceps. Resected and retrieved.
- Diverticulosis in the sigmoid colon.
- Internal hemorrhoids.
bx HP and TA polyps, rectal noted with pieces of hyperplastic benign mucosa
Assessment / Plan
-
Pt is a 69yo with hx MDS, arthritis, back pain prior lami, renal stones, hearing loss, b/l mastoid cavitis, anxiety/depression, UTI prior urosepsis, IBS, BPH, brain abscess, diverticulosis, hemorrhoids , GERD with onset of groin pain. He was seen
by ortho Dr. Hurd 10/30-- MRI 2022 reviewed with severe DDD L3-4. L4-5, prior lami at L4-5, right subarticular stenosis L4-5, moderate canal narrowing L3-4 secondary to disc extrusion and recommended cyclobenzaprine, brace and trigger point
injection completed. Pt also seen by PCP and sent to ER. On admission Ct completed with mild to moderate distention of rectum with stool no stercoral colitis moderate stool in colon to suggest constipation. Pt also noted with L1 acute vs subacute
fracture. Also noted small bowel to small bowel anastomosis. Pt admits to constipation prior to admission on Linzess and fiber regiment. hx Colonoscopy: 04/2024- [facility] - HP/TA polyps, diverticulosis and hemorrhoids. No anticoagulation + NSAID and
tylenol use with back pain.
-groin pain
-constipation noted on imaging
-L1 acute to subacute fracture
-DDD/ chronic back pain
-hx MDS with noted anemia with macrocytosis
other med problems:
-IBS
-GERD
-arthritis
-hx back pain and prior lami
-hearing loss hx b/l mastoid cavitis
-anxiety/depression
-hx UTI
-BPH
-brain abscess
PLAN:
etiology of groin pain related to L1 fracture vs constipation vs other
groin area in Dermatome of L1 distribution
cont management of L1 fracture per medical team - Pt, pain control etc
pt has been in contact with ortho for follow up after discharge
for constipation will give suppository now- if not effective then enema
will give 1/2 bottle of mag citrate and if needed give second half
add Bentyl PRN as takes at home as needed
will increase Linzess to 145mcg starting in AM 220
cont outpatient fiber regiment
cont PPI with hx GERD
trend CBC with anemia but likely related to underlying MDS, B12 828 will add folate level
OP follow with Dr. Lewis for MDS on Aranesp
-
-
Thank you for consultation and allowing me to participate in the patient's care. Please call the case consultant GI physician during the after hours with any questions or concerns.
[2024-11-04 11:43] VITALS: BP 133/63; PULSE 77; O2SAT 94
[2024-11-04 11:50] VITALS: BP 133/63; PULSE 81; O2SAT 96
--- NOTE | 2024-11-04 12:07 | W.PN.UPDATE ---
Update Note
Progress Note Update
Nonbillable note
1. Left lower quadrant/inguinal pain -significant tenderness on palpation in the left lower quadrant. CT abdomen pelvis IV contrast only, showed some increase stool burden although no stercoral colitis no sigmoid diverticulitis.
Patient voicing his symptoms started 48 hours back when patient was having bowel movement. Denies of any falls/straining injury to leg.
Is patient developing sigmoid diverticulitis? Started empiric Unasyn for now. GI evaluation requested as well
CT abdomen pelvis did not show any occult fracture on left hip/pelvic bone
Patient also worried about strangulated inguinal hernia although nothing to support theory on imaging
2. L1 endplate compression fracture -patient have history of laminectomy/spinal surgery. Currently following with Dr. Hurd and getting periodic JOMAR.
Denies of any significant back pain issue
3. Ambulatory dysfunction -difficult to explain clinically. PT OT evaluation requested
[2024-11-04 12:23] VITALS: BMI 27.1
[2024-11-04] MEDS: CITROMA 300 ML PO (12:44)
[2024-11-04] MEDS: DULCOLAX 10 MG RECTAL (12:44)
[2024-11-04] MEDS: UNASYN IV ×2 (13:55→21:05)
[2024-11-04 14:21] LABS: Folate > 20.0 ng/ml (2.76-20)
[2024-11-04 14:55] VITALS: BP 128/55
--- NOTE | 2024-11-04 15:11 | CM ---
Met with patient to obtain information. Patient stated that he lives with his sister in a one story condo with no steps to enter. He described himself as independent with all of his ADLs, personal care, dressing and bathing. He can do household
chores, cook clean and do laundry. He drives and can transport himself to all of his appointments and do his own shopping.
Patient has a shower chair but no other DME.
He has a prescription plan and uses, [facility] in [place] for all of his medications.
His PCP is, Dung De Dios.
He has not been to a SNF or had VN.
Patient stated that he has a lot of supportive friends in his community and therefore feels that he will be well cared for when he returns back home which is his goal.
Plan: Case management will continue to follow and assist with discharge planning. Home, will watch for VN needs.
[2024-11-04] MEDS: NORCO 5/325 1 TABLET PO ×2 (15:42→21:05)
[2024-11-04] MEDS: LOVENOX 40 MG SC (17:27)
[2024-11-04] MEDS: FLOMAX 0.4 MG PO (17:28)
[2024-11-04] MEDS: FLEXERIL 10 MG PO (21:06)
[2024-11-04 23:00] VITALS: BP 123/59
[2024-11-05] MEDS: UNASYN IV ×4 (02:35→21:08)
[2024-11-05] MEDS: LINZESS 145 MCG PO (06:23)
[2024-11-05] MEDS: NORCO 5/325 2 TABLET PO ×2 (06:28→13:01)
[2024-11-05 06:42] LABS: Hematocrit 24.9 % (39.0-52.0); Hemoglobin 8.1 g/dL (13.0-18.0); Mean Corp Hgb Conc. 32.5 g/dL (33.0-37.0); Mean Corpuscular Hgb 34.2 pg (27.0-31.0); Mean Corpuscular Volume 105.1 fL (80.0-94.0); Mean Platelet Volume 10.4 fL (7.4-10.4); Platelet Count 311 10^3/uL (130-400); Red Blood Cell Count 2.37 10^6/uL (4.70-6.10); Red Cell Dist. Width 26.5 % (11.5-14.5); White Blood Cell Count 6.3 10^3/uL (4.8-10.8)
[2024-11-05 07:09] VITALS: BP 133/69
[2024-11-05 07:33] LABS: Blood Urea Nitrogen 13 mg/dl (9-20); Calcium 8.4 mg/dl (8.4-10.2); Carbon Dioxide 31 mmol/L (22-30); Chloride 100 mmol/L (98-107); Estimated Creatinine Clearance 101 ml/min; Glucose 117 mg/dl (70-99); Potassium 3.6 mmol/L (3.5-5.1); Sodium 138 mmol/L (135-145); eGFR > 60.00
[2024-11-05] MEDS: PROSCAR 5 MG PO (08:08)
[2024-11-05] MEDS: NORCO 5/325 1 TABLET PO ×3 (08:09→23:26)
[2024-11-05] MEDS: PROTONIX 40 MG PO ×2 (08:09→21:08)
[2024-11-05] MEDS: WELLBUTRIN XL (24 hour extended release) 300 MG PO (08:09)
[2024-11-05] MEDS: PROTONIX 20 MG PO (08:14)
--- NOTE | 2024-11-05 09:17 | W.PN.GI.CBS2 ---
Addendum entered and electronically signed by Shyann Gilbert Do, MD 11/05/24 14:30:
I saw and examined the patient.
The BASKET PATCHER's note was reviewed and I agree with the note.
Comment: Groin pain improved. Copious BMs. Vitals stable. Exam tall in NAD conversant, NTTP L lower groin TTP. Labs reviewed
Recommendations
- C/w Linzess 145mcg daily
- C/w miralax daily
- L groin pain is MSK related and pain management per primary team
- AXR today with improvement in fecal burden
No further GI recs will sign off please call for questions
He prefers to FU with me (instead of Dr Owens). My office will call him to arrange. Above d/w hospitalist
Original Note:
Today's Communication / Plan
-
etiology of groin pain multifactorial related to L1 fracture and constipation vs other
groin area in Dermatome of L1 distribution
cont management of L1 fracture per medical team - Pt, pain control etc
pt has been in contact with ortho for follow up after discharge
Pt with large stool with laxative regiment
some slight improved pain with BM likely multi factorial with ortho and GI issues
on discharge would continued Linzess to 145mcg (pt will need script sent with change in dose) and fiber daily-- pt now admits to recent decreased Linzess dosing prior to admission
I sent message to GI office to arrange OP follow up with [facility]
cont Bentyl PRN as takes at home as needed
cont PPI with hx GERD
trend CBC with anemia but likely related to underlying MDS, B12/folate stable
OP follow with Dr. Lewis for MDS on Aranesp
will sign off call if any further GI issues
Assessment / Plan
-
Pt is a 69yo with hx MDS, arthritis, back pain prior lami, renal stones, hearing loss, b/l mastoid cavitis, anxiety/depression, UTI prior urosepsis, IBS, BPH, brain abscess, diverticulosis, hemorrhoids , GERD with onset of groin pain. He was seen
by ortho Dr. Hurd 10/30-- MRI 2022 reviewed with severe DDD L3-4. L4-5, prior lami at L4-5, right subarticular stenosis L4-5, moderate canal narrowing L3-4 secondary to disc extrusion and recommended cyclobenzaprine, brace and trigger point
injection completed. Pt also seen by PCP and sent to ER. On admission Ct completed with mild to moderate distention of rectum with stool no stercoral colitis moderate stool in colon to suggest constipation. Pt also noted with L1 acute vs subacute
fracture. Also noted small bowel to small bowel anastomosis. Pt admits to constipation prior to admission on Linzess and fiber regiment. hx Colonoscopy: 04/2024- [facility] - HP/TA polyps, diverticulosis and hemorrhoids. No anticoagulation + NSAID and
tylenol use with back pain.
-groin pain
-constipation noted on imaging
-L1 acute to subacute fracture
-DDD/ chronic back pain
-hx MDS with noted anemia with macrocytosis
other med problems:
-IBS
-GERD
-arthritis
-hx back pain and prior lami
-hearing loss hx b/l mastoid cavitis
-anxiety/depression
-hx UTI
-BPH
-brain abscess
PLAN:
etiology of groin pain multifactorial related to L1 fracture and constipation vs other
groin area in Dermatome of L1 distribution
cont management of L1 fracture per medical team - Pt, pain control etc
pt has been in contact with ortho for follow up after discharge
Pt with large stool with laxative regiment
some slight improved pain with BM likely multi factorial with ortho and GI issues
on discharge would continued Linzess to 145mcg (pt will need script sent with change in dose) and fiber daily-- pt now admits to recent decreased Linzess dosing prior to admission
I sent message to GI office to arrange OP follow up with [facility]
cont Bentyl PRN as takes at home as needed
cont PPI with hx GERD
trend CBC with anemia but likely related to underlying MDS, B12/folate stable
OP follow with Dr. Lewis for MDS on Aranesp
will sign off call if any further GI issues
Subjective
Subjective
Date of Service: November 05, 2024
some improved LLQ pain but still present, + large stool 11/04 with laxative regiment on regular diet
Objective
Data Reviewed
Laboratory Data:
Laboratory Results
11/05/24 06:21
11/05/24 06:21
Laboratory Results
Total Bilirubin 0.8 mg/dl (0.2-1.3) 11/03/24 18:04
AST 21 U/L (17-59) 11/03/24 18:04
ALT 18 U/L (0-50) 11/03/24 18:04
Alkaline Phosphatase 67 U/L (38-126) 11/03/24 18:04
Vital Signs and I&O:
Vital Signs
Temp Pulse Resp BP Pulse Ox
98.5 F 75 16 133/69 95
11/05/24 07:09 11/05/24 07:09 11/05/24 07:09 11/05/24 07:09 11/05/24 07:09
I&O
11/04/24 11/05/24 11/06/24
06:59 06:59 06:59
Intake Total 720 / 720
Output Total 800 / 800 1450 / 1450
Balance -800 / -800 -730 / -730
Physical Exam
Physical Exam
HEENT: Anicteric and Moist mucous membranes
Cardiology: Normal Sinus Rhythm
Pulmonary: Clear
GI: Soft and Tender (LLQ )
Extremities: No Edema
Neuro: Non Focal
--- NOTE | 2024-11-05 13:12 | W.PN.HOSP.TC ---
Today's Communication/Plan
-
continue abx/pain control
continue bowel regimen
discharge planning for snf rehab
Assessment / Plan
Assessment / Plan
1. Left lower quadrant/inguinal pain
Sigmoid diverticulitis
-Patient have focal tenderness spot on left lower quadrant on exam
-CT abdomen pelvis IV contrast only, showed some increase stool burden although no stercoral colitis no sigmoid diverticulitis.
-Started on empiric Unasyn and symptoms are better
-Patient also was given laxatives for known chronic constipation issue
-Pain medication adjusted
-Gi evaluated and help appreciated
2. L1 endplate compression fracture
-patient have history of laminectomy/spinal surgery. Currently following with Dr. Hurd and getting periodic JOMAR.
-Denies of any significant back pain issue
-More incidental finding then related to patient's presentation this admission.
3. Ambulatory dysfunction
-difficult to explain clinically. PT OT evaluated and recommended rehab
4. Chronic constipation
-Linzess dose increased by GI
-Patient will maintain on oral MiraLAX as
-Had some diarrhea today from last night's suppository/laxative
MDS
h/o of renal stone
Cholecystectomy
hernia repair
spinal decompression L3 L5
left knee replacement
Bone marrow biopsy 06/2022
DVT PPX - lovenox
Full code
Anticipated Discharge: 24 - 48 hours
Subjective/Interval History
-
Date of Service: November 05, 2024
Patient subjectively feeling better today
Reported some diarrhea from laxative use
Objective Data
-
Labs:
Laboratory Results
11/05/24
06:21
WBC 6.3
Hgb 8.1 L
Hct 24.9 L
Plt Count 311
Sodium 138
Potassium 3.6
Chloride 100
Carbon Dioxide 31 H
BUN 13
Creatinine 0.7
Glucose 117 H
Calcium 8.4
Vital Signs:
Vital Signs
Temp Pulse Resp BP Pulse Ox
98.5 F 75 16 133/69 95
11/05/24 07:09 11/05/24 07:09 11/05/24 07:09 11/05/24 07:09 11/05/24 07:09
I&O
11/04/24 11/05/24 11/06/24
06:59 06:59 06:59
Intake Total 720 / 720
Output Total 800 / 800 1450 / 1450
Balance -800 / -800 -730 / -730
Review of Systems
-
Respiratory: Reports No Symptoms
Cardiac: Reports No Symptoms
Abdomen/GI: Reports Abdominal Pain and Diarrhea; Denies Nausea or Vomiting
Physical Exam
-
General: Appears in Distress
HEENT: Negative Oxygen
Respiratory: Clear to Auscultation
Cardiac: Regular Rhythm and S1/S2; Negative Murmur
GI: Soft, Nondistended and Tender (LLQ)
Neuro: Awake, Alert, Oriented, AO x 3 and No Motor Deficits
[2024-11-05 15:10] VITALS: BP 124/59
[2024-11-05] MEDS: MIRALAX PO (15:10)
[2024-11-05] MEDS: FLOMAX 0.4 MG PO (17:12)
[2024-11-05] MEDS: LOVENOX 40 MG SC (17:12)
[2024-11-05] MEDS: TYLENOL 650 MG PO (17:12)
[2024-11-05] MEDS: FLEXERIL 10 MG PO (21:08)
[2024-11-05 23:00] VITALS: BP 145/74
[2024-11-06] MEDS: UNASYN IV ×4 (03:51→20:44)
[2024-11-06 06:42] LABS: Hematocrit 25.5 % (39.0-52.0); Hemoglobin 8.4 g/dL (13.0-18.0); Mean Corp Hgb Conc. 32.9 g/dL (33.0-37.0); Mean Corpuscular Hgb 34.7 pg (27.0-31.0); Mean Corpuscular Volume 105.4 fL (80.0-94.0); Mean Platelet Volume 9.9 fL (7.4-10.4); Platelet Count 319 10^3/uL (130-400); Red Blood Cell Count 2.42 10^6/uL (4.70-6.10); Red Cell Dist. Width 26.3 % (11.5-14.5); White Blood Cell Count 5.5 10^3/uL (4.8-10.8)
[2024-11-06 07:18] VITALS: BP 154/69
[2024-11-06] MEDS: LINZESS 145 MCG PO (07:29)
[2024-11-06 07:33] LABS: Blood Urea Nitrogen 10 mg/dl (9-20); Calcium 8.4 mg/dl (8.4-10.2); Carbon Dioxide 31 mmol/L (22-30); Chloride 101 mmol/L (98-107); Estimated Creatinine Clearance 101 ml/min; Glucose 111 mg/dl (70-99); Potassium 3.8 mmol/L (3.5-5.1); Sodium 138 mmol/L (135-145); eGFR > 60.00
[2024-11-06] MEDS: WELLBUTRIN XL (24 hour extended release) 300 MG PO (08:34)
[2024-11-06] MEDS: PROTONIX 40 MG PO (08:34)
[2024-11-06] MEDS: TYLENOL 650 MG PO ×2 (08:34→16:27)
[2024-11-06] MEDS: MIRALAX 17 GRAMS PO (08:34)
[2024-11-06] MEDS: PROSCAR 5 MG PO (08:34)
[2024-11-06] MEDS: PROTONIX 20 MG PO (08:36)
--- NOTE | 2024-11-06 13:25 | W.PN.HOSP.TC ---
Today's Communication/Plan
-
continue abx
continue pain meds
d/c planning for snf rehab
Assessment / Plan
Assessment / Plan
1. Left lower quadrant/inguinal pain
Sigmoid diverticulitis
-Patient have focal tenderness spot on left lower quadrant on exam
-CT abdomen pelvis IV contrast only, showed some increase stool burden although no stercoral colitis no sigmoid diverticulitis.
-Started on empiric Unasyn and symptoms are better
-Patient also was given laxatives for known chronic constipation issue
-Pain medication adjusted
-Gi evaluated and help appreciated
2. L1 endplate compression fracture
-patient have history of laminectomy/spinal surgery. Currently following with Dr. Hurd and getting periodic JOMAR.
-Denies of any significant back pain issue
-More incidental finding then related to patient's presentation this admission.
3. Ambulatory dysfunction
-difficult to explain clinically. PT OT evaluated and recommended rehab
-Patient initially opted for Home vn but now agreeable to snf
4. Chronic constipation - Improved
-Linzess dose increased by GI
-Patient will maintain on oral MiraLAX as
-repeat abd xr showing improved stool burden
MDS
h/o of renal stone
Cholecystectomy
hernia repair
spinal decompression L3 L5
left knee replacement
Bone marrow biopsy 06/2022
DVT PPX - lovenox
Full code
Anticipated Discharge: Today
Subjective/Interval History
-
Date of Service: November 06, 2024
still have some groin pain
concerned about limited mobility
no other problems
Objective Data
-
Labs:
Laboratory Results
11/06/24
06:28
WBC 5.5
Hgb 8.4 L
Hct 25.5 L
Plt Count 319
Sodium 138
Potassium 3.8
Chloride 101
Carbon Dioxide 31 H
BUN 10
Creatinine 0.7
Glucose 111 H
Calcium 8.4
Vital Signs:
Vital Signs
Temp Pulse Resp BP Pulse Ox
97.8 F 87 17 154/69 97
11/06/24 07:18 11/06/24 07:18 11/06/24 07:18 11/06/24 07:18 11/06/24 07:18
I&O
11/05/24 11/06/24 11/07/24
06:59 06:59 06:59
Intake Total 720 / 720 1560 / 1560
Output Total 1450 / 1450 2049
Balance -730 / -730 -490 / -490
Review of Systems
-
Respiratory: Reports No Symptoms
Cardiac: Reports No Symptoms
Abdomen/GI: Reports No Symptoms
Physical Exam
-
General: Appears in Distress
HEENT: Negative Oxygen
Respiratory: Clear to Auscultation
Cardiac: Regular Rhythm and S1/S2; Negative Murmur
GI: Soft, Nontender and Nondistended
Neuro: Awake, Alert, Oriented, AO x 3 and No Motor Deficits
[2024-11-06 14:52] VITALS: BP 118/67
--- NOTE | 2024-11-06 16:40 | CM ---
Met with patient at his request per RN. Patient stated that he is aware that PT is recommending SNF however he feels that he is close enough to baseline that he would be fine returning home. Reviewed concerns, particularly that he is by himself
during the day however he stated that he feels that he will be fine. He was agreeable to VN and chose . Patient's sister will be home in the afternoons/evenings. He stated that he has multiple friends in his community who will look in on him.
Messaged attending and PT to update. Attending will put order/consult in for VN.
Plan: Case management will continue to follow and assist with discharge planning. Home with VN services through . Will make referral.
[2024-11-06] MEDS: FLOMAX 0.4 MG PO (17:04)
[2024-11-06] MEDS: LOVENOX 40 MG SC (17:04)
[2024-11-06] MEDS: NORCO 5/325 1 TABLET PO (20:45)
[2024-11-06] MEDS: FLEXERIL 10 MG PO (22:04)
[2024-11-06 23:00] VITALS: BP 140/63
[2024-11-07] MEDS: UNASYN IV ×4 (02:15→20:39)
[2024-11-07] MEDS: NORCO 5/325 1 TABLET PO ×2 (02:19→20:53)
[2024-11-07 07:05] VITALS: BP 140/71
[2024-11-07] MEDS: LINZESS 145 MCG PO (07:32)
[2024-11-07 07:54] LABS: Hematocrit 25.9 % (39.0-52.0); Hemoglobin 8.5 g/dL (13.0-18.0); Mean Corp Hgb Conc. 32.8 g/dL (33.0-37.0); Mean Corpuscular Hgb 34.7 pg (27.0-31.0); Mean Corpuscular Volume 105.7 fL (80.0-94.0); Mean Platelet Volume 10.7 fL (7.4-10.4); Platelet Count 341 10^3/uL (130-400); Red Blood Cell Count 2.45 10^6/uL (4.70-6.10); Red Cell Dist. Width 26.3 % (11.5-14.5); White Blood Cell Count 5.8 10^3/uL (4.8-10.8)
[2024-11-07 08:06] LABS: Blood Urea Nitrogen 18 mg/dl (9-20); Calcium 8.7 mg/dl (8.4-10.2); Carbon Dioxide 31 mmol/L (22-30); Chloride 101 mmol/L (98-107); Estimated Creatinine Clearance 101 ml/min; Glucose 117 mg/dl (70-99); Potassium 3.7 mmol/L (3.5-5.1); Sodium 138 mmol/L (135-145); eGFR > 60.00
[2024-11-07] MEDS: NORCO 5/325 2 TABLET PO (09:17)
[2024-11-07] MEDS: WELLBUTRIN XL (24 hour extended release) 300 MG PO (09:19)
[2024-11-07] MEDS: PROTONIX 20 MG PO (09:19)
[2024-11-07] MEDS: PROSCAR 5 MG PO (09:20)
[2024-11-07] MEDS: MIRALAX 17 GRAMS PO (09:22)
[2024-11-07] MEDS: DULCOLAX 10 MG PO (12:41)
[2024-11-07] MEDS: LASIX 20 MG IV (12:41)
--- NOTE | 2024-11-07 13:08 | W.PN.HOSP.TC ---
Today's Communication/Plan
-
MR left hip
laxatives
possible d.c in 24hrs
Assessment / Plan
Assessment / Plan
1. Left lower quadrant/inguinal pain
Sigmoid diverticulitis
-Patient have focal tenderness spot on left lower quadrant on exam
-CT abdomen pelvis IV contrast only, showed some increase stool burden although no stercoral colitis no sigmoid diverticulitis.
-Patient also was given laxatives for known chronic constipation issue
-Pain medication adjusted
-Gi evaluated and help appreciated
-Given trial of empiric Unasyn, will transition to oral Augmentin at discharge
-Persistent persistent Ensure initially felt to be abdominal and nature although now complaining close inguinal ligament
-Left hip MRI ordered to look for AVN/soft tissue changes
-if normal will need to f/u with ortho in office
2. L1 endplate compression fracture
-patient have history of laminectomy/spinal surgery. Currently following with Dr. Hurd and getting periodic JOMAR.
-Denies of any significant back pain issue
-More incidental finding then related to patient's presentation this admission.
3. Ambulatory dysfunction
-difficult to explain clinically. PT OT evaluated and recommended rehab
-patient continue to opt in for home vn
4. Chronic constipation - Improved
-Linzess dose increased by GI
-Patient will maintain on oral MiraLAX as
-repeat abd xr showing improved stool burden
-repeat dosing of dulcolax as patient constipated again
5. LE edema
-iv lasix 20mgx1
-compression stockings
-no h/f h.o
MDS
h/o of renal stone
Cholecystectomy
hernia repair
spinal decompression L3 L5
left knee replacement
Bone marrow biopsy 06/2022
DVT PPX - lovenox
Full code
Anticipated Discharge: Within 24 hours
Subjective/Interval History
-
Date of Service: November 07, 2024
still complaining of left groin pain
no BM overnight
afebrile
Objective Data
-
Labs:
Laboratory Results
11/07/24
07:09
WBC 5.8
Hgb 8.5 L
Hct 25.9 L
Plt Count 341
Sodium 138
Potassium 3.7
Chloride 101
Carbon Dioxide 31 H
BUN 18
Creatinine 0.7
Glucose 117 H
Calcium 8.7
Vital Signs:
Vital Signs
Temp Pulse Resp BP Pulse Ox
97.7 F 87 18 133/67 98
11/07/24 07:05 11/07/24 12:41 11/07/24 07:05 11/07/24 12:41 11/07/24 07:05
I&O
11/06/24 11/07/24 11/08/24
06:59 06:59 06:59
Intake Total 1560 / 1560 1320 / 1320
Output Total 2049 / 2049 700 / 700
Balance -490 / -490 620 / 620
Review of Systems
-
Respiratory: Reports No Symptoms
Cardiac: Reports No Symptoms
Abdomen/GI: Reports No Symptoms
Physical Exam
-
General: Appears in Distress
HEENT: Negative Oxygen
Respiratory: Clear to Auscultation
Cardiac: Regular Rhythm and S1/S2; Negative Murmur
GI: Soft, Nontender and Nondistended
Neuro: Awake, Alert, Oriented, AO x 3 and No Motor Deficits
[2024-11-07 15:03] VITALS: BP 113/61
[2024-11-07] MEDS: LOVENOX 40 MG SC (17:30)
[2024-11-07] MEDS: FLOMAX 0.4 MG PO (17:30)
[2024-11-07] MEDS: FLEXERIL 10 MG PO (22:43)
[2024-11-07 23:00] VITALS: BP 157/75
[2024-11-08] MEDS: UNASYN IV ×2 (02:57→08:05)
[2024-11-08] MEDS: LINZESS 145 MCG PO (06:39)
[2024-11-08 07:30] VITALS: BP 128/68
[2024-11-08] MEDS: MIRALAX 17 GRAMS PO (08:05)
[2024-11-08] MEDS: PROSCAR 5 MG PO (08:05)
[2024-11-08] MEDS: WELLBUTRIN XL (24 hour extended release) 300 MG PO (08:05)
[2024-11-08] MEDS: PROTONIX 20 MG PO (08:05)
[2024-11-08] MEDS: NORCO 5/325 2 TABLET PO (12:44)
--- NOTE | 2024-11-08 14:09 | W.PN.HOSP.TC ---
Today's Communication/Plan
-
d/c home with VN
Assessment / Plan
Assessment / Plan
MR left hip
1. Severe discogenic degenerative disease along the right side of L4/L5.
2. Mild bilateral osteoarthritis of the hips.
3. 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
4. Small bilateral hip joint effusions.
5. Tear of the lateral and posterior left acetabular labrum.
6. Diffuse bone marrow signal abnormality consistent with myelodysplastic syndrome.
7. Minimal edema in the proximal adductor brevis muscles suggesting mild muscle strain.
1. Left lower quadrant/inguinal pain
Sigmoid diverticulitis - resolved
-Patient have focal tenderness spot on left lower quadrant on exam
-CT abdomen pelvis IV contrast only, showed some increase stool burden although no stercoral colitis no sigmoid diverticulitis.
-Patient also was given laxatives for known chronic constipation issue
-Pain medication adjusted
-Gi evaluated and help appreciated
-Finish course of empiric unasyn, no abx at discharge
2. Left acetabular labrum tear
B/l AVN
-MR left hip report as above
-Discussed with oncall ortho -PT/pain control.
-patient provided office f/u if pain persists.
3. L1 endplate compression fracture
-patient have history of laminectomy/spinal surgery. Currently following with Dr. Hurd and getting periodic JOMAR.
-Denies of any significant back pain issue
-More incidental finding then related to patient's presentation this admission.
3. Ambulatory dysfunction
-difficult to explain clinically. PT OT evaluated and recommended rehab
-patient continue to opt in for home vn
4. Chronic constipation - Improved
-Linzess dose increased by GI
-Patient will maintain on oral MiraLAX as
-repeat abd xr showing improved stool burden
5. Chronic LE edema
-iv lasix 20mgx1 given yesterday
-compression stockings
-no h/f h.o
MDS
h/o of renal stone
Cholecystectomy
hernia repair
spinal decompression L3 L5
left knee replacement
Bone marrow biopsy 06/2022
DVT PPX - lovenox
Full code
More than 30 minutes spent in discharge including
Final examination of the patient
Summarizing hospital stay
Instructions for continuing care to all relevant caregivers
Preparation of discharge records, prescriptions, and referral forms
Total time spent (in minutes): 37 mins
Anticipated Discharge: Today
Subjective/Interval History
-
Date of Service: November 08, 2024
pain is better
no other issues reported
Objective Data
-
Vital Signs:
Vital Signs
Temp Pulse Resp BP Pulse Ox
98.2 F 96 16 128/68 95
11/08/24 07:30 11/08/24 07:30 11/08/24 07:30 11/08/24 07:30 11/08/24 07:30
I&O
11/07/24 11/08/24 11/09/24
06:59 06:59 06:59
Intake Total 1320 / 1320 1620 / 1620 100 / 100
Output Total 700 / 700 1200 / 1200 300 / 300
Balance 620 / 620 420 / 420 -200 / -200
Review of Systems
-
Respiratory: Reports No Symptoms
Cardiac: Reports No Symptoms
Abdomen/GI: Reports No Symptoms
Physical Exam
-
General: Appears in Distress
HEENT: Negative Oxygen
Respiratory: Clear to Auscultation
Cardiac: Regular Rhythm and S1/S2; Negative Murmur
GI: Soft, Nontender and Nondistended
Neuro: Awake, Alert, Oriented, AO x 3 and No Motor Deficits
[2024-11-08 14:31] VITALS: BP 133/67
--- NOTE | 2024-11-08 14:51 | CM ---
CM following rte: discharge planning.
Reviewed pt's chart, met with pt.
Discharge order noted. Pt is aware, expressed his agreement with discharge and he stated his friend is coming to transport home. IMM reviewed placed on chart, pt has a copy.
Pt stated he is awre that SNF level of care is recommended and he preferred to return back home with [facility] services and friend support. Pt stated he just moved to [place] from [place] and will stay in [place].
A referral to [facility] made.
Please fax discharge instructions to [facility] at [phone].
D/C plan: home with [facility] and friend support. Friend to transport.
--- NOTE | 2024-11-08 16:36 | W.DCSUMMARY ---
Discharge Summary
Discharge Data
Date of Admission: 11/05/24
Date of Discharge: 11/08/24
-
Pending Results: No
Hospital Course
Discharging Physician : Dr Fabio Garcia
Disposition : To home with VN
Primary care physician : Dr Dung De Dios
Principal Discharge diagnosis :
Left inguinal pain
bilateral femoral head avascular necrosis
Acetabular labrum tear on left
Possible sigmoid diverticulitis
Constipation
Ambulatory dysfunction
Lower extremity edema
Chronic Discharge diagnosis :
Myelodysplastic syndrome
History of nephrolithiasis
History of cholecystectomy
History of hernia repair
History of lumbar spinal decompression surgery
Left total knee replacement
Hospital Course :
Patient is a 69-year-old male with above-mentioned past medical history came to ER with new onset of ambulatory dysfunction and left inguinal pain. Patient has history of abdominal/inguinal hernia and was concerned about recurrence of hernia and
strangulation. CT abdomen pelvis in ER ruled out any hernia issues. Patient was incidentally noted to having L1 endplate compression fracture. Patient was admitted to hospital for further monitoring and PT evaluation. On exam following day
patient was felt to having left lower quadrant abdominal pain and although no clear signs of inflammation in the colon patient was provided empiric antibiotic for possible sigmoid diverticulitis. Patient is also noted to be constipated and usually
takes Linzess for this. GI was involved in care who recommended to increasing the Linzess dose. Patient was referred laxative therapy with which patient had improvement of symptoms with no relief of constipation. Patient left inguinal pain
improved although not completely resolved. Follow-up MRI hip was done which showed bilateral minimal AVN of femoral head left acetabular labrum tear, findings were discussed with on-call orthopedic surgeon who recommended medical management.
Patient was maintained on pain medication and physical therapy at discharge. Patient was appropriate for [facility] facility for rehab although opted to go home with home VN care. Patient is planned to follow-up with orthopedic surgery/spinal
surgeon in office postdischarge.
Important imaging findings :
None
Procedure findings :
None
Discharge Plan
-
Patient Disposition: Home with Home Care
Discharge Diagnosis/Procedures: Left inguinal pain, B/l femoral head AVN, acetabular labral tear, L1 compression fracture
Condition: Fair
Diet: Regular
Activity: As tolerated
Driving Restrictions: No driving
Bathing Restrictions: OK to Shower
Referrals:
Shyann Julian MD [Active] - (call to arrange follow up with [facility] for constipation)
Dung De Dios MD [Family Provider] - in one week
Prescriptions:
New
Linzess 145 mcg Capsule
145 mcg PO DAILY @ 0600 Qty: 30 1RF
polyethylene glycol 3350 17 gram Powder In Packet
17 g PO DAILY Qty: 30 1RF
acetaminophen [Tylenol 8 Hour] 650 mg tablet extended release
650 mg PO Q8H PRN (Reason: Mild pain) Qty: 30 0RF
hydrocodone-acetaminophen 10-325 mg tablet
1 tab PO Q8H PRN (Reason: Mod sev pain) Qty: 15 0RF
Continued
dicyclomine 20 mg Tablet
20 mg PO TID
Patient Comments:
Takes in morning,dinnertime and bedtime
cholecalciferol (vitamin D3) [Vitamin D3] 25 mcg (1,000 unit) Capsule
125 mcg PO QPM
omeprazole 20 mg Tablet,Delayed Release (Dr/Ec)
20 mg PO DAILY
Centrum Silver Men 300-600-300 mcg Tablet
1 tab PO QPM
PreserVision AREDS-2 250-90-40-1 mg Capsule
1 cap PO DAILY
bupropion HCl 150 mg tablet extended release 24 hr
300 mg PO DAILY
magnesium, potassium aspartate 250-250 mg Capsule
1 cap PO BID
Fiber Therapy (ca polycarboph)
2 cap PO BID
Aranesp (in polysorbate) 25 mcg/mL Solution
50 mcg SC [id number]
cyclobenzaprine 10 mg Tablet
10 mg PO HS
finasteride 5 mg Tablet
5 mg PO DAILY
ascorbic acid (vitamin C) [Vitamin C] 1,000 mg Tablet
1 g PO DAILY
omega 7-[id number]-usu-fish oil [Fish Oil] 1,200 (144-216) mg Capsule
1 cap PO BID
Discontinued
Linzess 72 mcg Capsule
72 mcg PO DAILY
Discharge Orders:
Discharge Patient (As Directed); Ordered 11/08/24
Ordered By: Fabio Garcia
Discharge Date and Time
Discharge Date/Time: 11/08/24 15:27
Print Language: INDONESIAN
== END 2024-11-08 15:27 | disposition home health service (06) | DRG 543 ==
LOC: 3 WEST ACU 08:15
PROVIDERS: Nurse Practitioner; Physician Assistant; ADMITTING PHYSICIAN Internal Medicine; ATTENDING PHYSICIAN Hospitalist; CONSULT PHYSICIAN Internal Medicine Gastroenterology; EMERGENCY PHYSICIAN Student in an Organized Health Care Education/Training Program; FAMILY PHYSICIAN Internal Medicine
DX: M48.56XA Collapsed vertebra, not elsewhere classified, lumbar region, initial encounter for fracture (principal); K57.32 Diverticulitis of large intestine without perforation or abscess without bleeding; M87.852 Other osteonecrosis, left femur; M87.851 Other osteonecrosis, right femur; D46.9 Myelodysplastic syndrome, unspecified; F17.210 Nicotine dependence, cigarettes, uncomplicated; F32.A Depression, unspecified; F41.9 Anxiety disorder, unspecified; M16.0 Bilateral primary osteoarthritis of hip; M24.852 Other specific joint derangements of left hip, not elsewhere classified; K59.09 Other constipation; R60.0 Localized edema; K21.9 Gastro-esophageal reflux disease without esophagitis; D63.0 Anemia in neoplastic disease; Z79.899 Other long term (current) drug therapy; Z96.652 Presence of left artificial knee joint; Z90.49 Acquired absence of other specified parts of digestive tract
CPT/HCPCS: 73721; 74018; 74177; 80048; 80053; 81003; 81015; 82607; 82728; 82746; 83540; 83550; 83605; 84443; 85025; 85027; 87086; 97116; 97162; 97166; 97530; 97535; 99285; 99406; Q9967

== ENCOUNTER → 2024-12-17 08:59 | Outpatient (REF) | payer OTHER, SELFPAY | LOC: HWRAD 08:59 | PROVIDERS: ATTENDING PHYSICIAN Internal Medicine | DX: S32.019A Unspecified fracture of first lumbar vertebra, initial encounter for closed fracture (principal) | CPT/HCPCS: 77080 ==

== ENCOUNTER 2025-03-22 10:23 | Outpatient (RCR) | payer OTHER, SELFPAY | END 2025-03-22 23:59 | disposition home or self-care (01) | LOC: RPT 10:23 | PROVIDERS: ATTENDING PHYSICIAN Specialist; FAMILY PHYSICIAN Internal Medicine | DX: I89.0 Lymphedema, not elsewhere classified (principal); Z73.6 Limitation of activities due to disability; M62.81 Muscle weakness (generalized); D46.9 Myelodysplastic syndrome, unspecified | CPT/HCPCS: 97163; 97530 ==

== ENCOUNTER 2025-04-27 13:21 | Outpatient (RCR) | payer OTHER, SELFPAY | END 2025-04-28 09:05 | disposition home or self-care (01) | LOC: RPT 13:21 | PROVIDERS: ATTENDING PHYSICIAN Specialist; FAMILY PHYSICIAN Internal Medicine | DX: I89.0 Lymphedema, not elsewhere classified (principal); Z73.6 Limitation of activities due to disability; M62.81 Muscle weakness (generalized); D46.9 Myelodysplastic syndrome, unspecified | CPT/HCPCS: 97110; 97140; 97530 ==

== ENCOUNTER 2025-06-02 08:51 | Inpatient (IN) | payer OTHER, SELFPAY ==
--- NOTE | 2025-05-05 09:05 | CM ---
CM reviewed medical records.
Demographics: confirmed
Living situation: Lives with sister, shares a first floor condo
Support Person Post Operatively: Sister, friends
History of
VN: Yes, not currently on service [id number]
SNF: No
Outpatient: History of outpatient at [facility], patient is requesting VN
Has patient purchased required equipment: yes
PCP: Danitza
Pharmacy: [facility]
Post Operative Discharge Plan: Patient was encouraged to work out outpatient PT rides, but patient persisted that he wanted home care as he is too nervous to go to outpatient PT. CM advised patient to speak to PA about VN.
[2025-05-12 13:43] VITALS: BMI 28.0
[2025-05-12 13:54] LABS: Hematocrit 27.8 % (39.0-52.0); Hemoglobin 9.1 g/dL (13.0-18.0); Mean Corp Hgb Conc. 32.7 g/dL (33.0-37.0); Mean Corpuscular Volume 104.5 fL (80.0-94.0); Platelet Count 478 10^3/uL (130-400); Red Cell Dist. Width 26.8 % (11.5-14.5)
[2025-05-12 14:04] VITALS: BMI 28.0
[2025-05-12 14:06] LABS: Glycohemoglobin (HgbA1c) 5.2 % (4.0-5.6)
[2025-05-12 14:25] LABS: ALT (SGPT) 25 U/L (0-50); AST (SGOT) 19 U/L (17-59); Albumin 5.1 g/dl (3.5-5.0); Alkaline Phosphatase 63 U/L (38-126); Blood Urea Nitrogen 26 mg/dl (9-20); Calcium 9.8 mg/dl (8.4-10.2); Carbon Dioxide 27 mmol/L (22-30); Chloride 103 mmol/L (98-107); Estimated Creatinine Clearance 70 ml/min; Glucose 103 mg/dl (70-99); Potassium 4.8 mmol/L (3.5-5.1); Sodium 138 mmol/L (135-145); Total Protein 7.4 g/dl (6.3-8.2); eGFR > 60.00
[2025-06-02] VITALS (13 sets, daily range): BP systolic 100–147; BP diastolic 45–96; PULSE 84; O2SAT 97
[2025-06-02] MEDS: NORMOSOL-R/PLASMALYTE-A 1000 IV ×2 (08:55→15:45)
[2025-06-02] MEDS: CELEBREX 200 MG PO (09:30)
[2025-06-02] MEDS: TYLENOL 650 MG PO ×3 (09:30→20:18)
--- NOTE | 2025-06-02 14:32 | W.PN.UPDATE ---
Update Note
Progress Note Update
R knee OA s/p R TKA w/ Dr Levi 06/02/25
- s/p L TKA 01/2021 at an outside facility
DVT prophylaxis - ASA, b/l venous foot pumps
Chronic lymphedema - resume Lasix w/ SBP parameters to minimize post-surgical hypotension
GERD - continue PPI therapy
Irritable bowel w/ constipation
History of bowel adhesions
- Adequate hydration advised
- Early mobility as tolerated
- Minimize opioids as able
- Colace/Senna BID w/ MOM HS prn
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
- Work w/ PT and OT as able
Myelodysplastic syndrome
Chronic anemia
- H&H POD 1
- Continue Aranesp q3w
- Prefer not to transfuse unless hgb </= 7 or patient symptomatic/hemodynamically unstable
BPH - monitor voids
- Continue Finasteride
- Flomax HS during admission
Chronic pain - pt advised to talk to pain learning and development specialist pre-op re: opioid Rx post-op
- Multimodal pain approach to include Tylenol, Celebrex, Decadron, Gabapentin HS, Lidocaine patches
Colon polyps
Diverticulosis
Nephrolithiasis
Degenerative disc disease with spinal stenosis
Scoliosis
Depression
Anxiety
Osteopenia
[place]
Recent tobacco abuse
[2025-06-02] MEDS: ROXICODONE 5 MG PO (15:09)
[2025-06-02] MEDS: LIDOCAINE 4% PATCH 2 PATCH TOPICAL (15:45)
--- NOTE | 2025-06-02 16:07 | PTCARENOTE ---
1515 Pt arrived from PACU. Pt VSS. AAOX3. IVF infusing. NV checks WNL. Mepilex c/d/i. oriented to room and call manjarrez. bed locked and in lowest position.
[2025-06-02] MEDS: VITAMIN D3 (cholecalciferol) 125 MCG PO (17:15)
[2025-06-02] MEDS: WELLBUTRIN XL (24 hour extended release) 300 MG PO (17:16)
[2025-06-02] MEDS: ASPIRIN 325 MG PO (17:16)
[2025-06-02] MEDS: PROTONIX 40 MG PO (17:16)
[2025-06-02] MEDS: PROSCAR 5 MG PO (17:16)
--- NOTE | 2025-06-02 18:01 | OR.RPT ---
Operative Report
Operative Report
Orthopaedic Surgery Operative Note
DATE OF OPERATION: 06/02/2025
PREOPERATIVE DIAGNOSES: Osteoarthritis, right knee.
POSTOPERATIVE DIAGNOSES: Osteoarthritis, right knee.
OPERATION PERFORMED:
1) Right total knee arthroplasty (CPT 89405)
2) Intraosseous administration of analgesic (CPT 26097)
SURGEON: Cristino Levi MD
ASSISTANTS: Connor Duncan PA-C who helped with patient and limb positioning and retraction
ANESTHESIA: General by anesthesia plus intraoperative infusion of morphine into the tibial metaphysis by Dr. Levi
COMPLICATIONS: None.
ESTIMATED BLOOD LOSS: 20mL
DRAINS: None
TOURNIQUET TIME: 46 minutes.
IMPLANTS:
- Krystian Persona CR Femur, size 10
- Krystian Persona tibia base plate, size F
- Krystian Persona ultracongruent articular surface, 12 mm
- All-polyethylene patellar component, size 35
- DJO [place] bone cement
INDICATIONS: The patient presented to my office with debilitating right knee pain due to osteoarthritis. We reviewed the natural history of this problem, as well as the risks, benefits, and alternatives of various treatment options. The patient
exhausted all nonoperative treatment options and wished to proceed with knee replacement surgery. The patient understood the risks which included, but were not limited to, bleeding, infection, failure to relieve pain, more pain than preop, damage to
blood vessels and nerves, need for reoperation, mechanical failure of the implants, wound healing problems, stiffness, instability, blood clot, pulmonary embolism, myocardial infarction, pneumonia, arrhythmia, CVA, and . The patient accepted
these risks and wished to proceed. All questions were answered, and informed consent was obtained.
PROCEDURE IN DETAIL: The patient was identified in the preoperative holding area. The right knee was identified as the operative site. The patient was taken in the operating room and placed in a supine position on the operating table. General
anesthesia was performed. IV antibiotics and tranexamic acid were administered. An SCD was placed on the left lower extremity. A well-padded tourniquet was placed on the proximal thigh. All bony prominences were well padded. The right lower
extremity was prepped and draped in the usual sterile fashion.
We performed a surgical time-out. An interarticular block was performed with local anesthetic with epinephrine. The limb was exsanguinated with an Esmarch bandage, then the tourniquet was inflated to 250 mmHg. I performed interosseous administration
of morphine-saline solution via a Jamshidi style intraosseous needle into the proximal medial tibial metaphysis as described by Lazaro John MD. This was performed to aid in pain control. A midline skin incision was made followed by a medial
parapatellar arthrotomy. A subperiosteal peel was performed on the medial tibia. I excised part of the infrapatellar fat pad to improve our visualization as well as tissue over anterior femur. The patella was everted and the knee was flexed. I
excised the remnants of the anterior and posterior cruciate ligaments as well as tibial and femoral osteophytes with rongeurs.
The knee was flexed, and the extramedullary tibial cutting guide was aligned. [place] was aligned at neutral, rotation was centered on the tibial tubercle, and coronal alignment was aligned with the mechanical axis of the tibia and center of the ankle
joint. The cut height was 10mm off the lateral tibia joint surface. The guide was secured into place. The MCL and LCL were protected. The tibia surface was cut. The cut surface was inspected after removal to ensure appropriate height and slope based
on the preoperative plan. The cut was checked with a drop stefani. It was centered nicely at the ankle.
A drill was used to open the femoral canal. The intramedullary distal femoral cutting guide was inserted into the femur. This was set at 5 degrees +0. This was secured into place with three pins. The cut level was checked with an emy wing. The
distal femur was cut through the cutting guide. The IM guide was reinserted to double check that the level of resection was flush and in appropriate alignment.
Pepin�s line and the transepicondylar axis were marked on the femur. The femoral sizing guide was applied to the anterior femur. Pins were inserted, and the 4-in-1 cutting guide was applied and secured into place. The rotation was compared to
Pepin�s line, the transepicondylar axis, and the neutral tibia cut and was found to be appropriate. The width was checked and found to be appropriate and lateralized on the femur. The anterior, posterior, and chamfur cuts were made. A lamina
credentialing specialist was used to open the flexion gap, and posterior osteophytes were removed with a curved osteotome. The remnant medial and lateral meniscus were also removed. I prophylactically cauterized the lateral geniculate arteries. A 10mm spacer block
was applied to the flexion gap and was noted to be balanced medially and laterally. The knee was extended, and the block showed symmetric to extension and flexion gaps.
The tibia was exposed and sized. Rotation was set in line with the tibial tubercle and congruent with the femur. The trial was secured into place with two pins. The trial femur was impacted into place, and a trial articular surface was placed. The
knee was taken through range of motion and noted to be stable throughout the arc of motion without gaping or excess tension. In extension, a measured resection of the patella was performed. The patella was sized, and lug holes were drilled. A trial
patella component was applied, and it was noted to track centrally throughout the arc of motion without need for further releases.
The trials were removed. The tibia keel was prepared with the punch and the drill. The bone surfaces were irrigated with sterile saline and dried. The cement was mixed in a vacuum mixer. Cement gun was used to apply cement to the tibial surface and
the undersurface of the tibial implant. Cement was pressurized into the tibial canal and tibia surface. The tibial component was impacted into place. Excess cement was removed. Cement was applied to the femoral surface and the femoral component. The
femoral component was impacted into place, and excess cement removed. A trial articular surface was inserted, and the knee was extended while the cement polymerized. The tourniquet was let down, and meticulous hemostasis was achieved. Dilute
betadine was poured into the wound and allowed to soak for 3 minutes. The knee was irrigated with copious normal saline.
Once the cement was polymerized, the trial articular surface was removed. Any excess cement was removed. The knee was trialed, and the final articular surface was selected and inserted into the tibial locking mechanism. The knee was reduced. A fresh
drape was applied to the surgical field.
The arthrotomy was closed with 0-PDS. Once closed, an interarticular block was performed with local anesthetic with epi. The deep dermal layer was closed with 2-0 PDS, and the subcuticular skin was closed with 3-0 monocryl. A Dermabond Prineo
dressing was applied to the skin in full flexion. Once this was completely dry, a sterile waterproof dressing was applied.
The anesthesia team performed an adductor canal block in the OR. The patient awoke from anesthesia without any difficulties. The sponge and instrument counts were correct x2 at the end of the case.
Martin Levi MD
[2025-06-02] MEDS: ANCEF 5 IV (18:06)
[2025-06-02] MEDS: LINZESS 145 MCG PO (18:24)
[2025-06-02] MEDS: COLACE 100 MG PO (20:16)
[2025-06-02] MEDS: DECADRON 4 MG PO (20:16)
[2025-06-02] MEDS: BACTROBAN 2% OINTMENT 1 APPLIC NASAL (20:16)
[2025-06-02] MEDS: LASIX PO (20:17)
[2025-06-02] MEDS: REMOVE LIDOCAINE PATCH 2 PATCH REMOVE (20:18)
[2025-06-02] MEDS: SENOKOT 17.2 MG PO (20:18)
[2025-06-02] MEDS: FLOMAX 0.4 MG PO (22:22)
[2025-06-02] MEDS: BENTYL 20 MG PO (22:23)
[2025-06-02] MEDS: NEURONTIN 300 MG PO (22:23)
[2025-06-03] VITALS (11 sets, daily range): BP systolic 92–123; BP diastolic 39–53
[2025-06-03] MEDS: TYLENOL 650 MG PO ×6 (00:04→20:23)
[2025-06-03] MEDS: ANCEF 5 IV (03:11)
[2025-06-03] MEDS: LINZESS 145 MCG PO (06:11)
[2025-06-03 06:56] LABS: Hematocrit 19.7 % (39.0-52.0); Hemoglobin 6.3 g/dL (13.0-18.0)
[2025-06-03] MEDS: ASPIRIN 325 MG PO (08:43)
[2025-06-03] MEDS: BACTROBAN 2% OINTMENT 1 APPLIC NASAL ×2 (08:43→20:22)
[2025-06-03] MEDS: BENTYL 20 MG PO ×3 (08:43→22:37)
[2025-06-03] MEDS: LIDOCAINE 4% PATCH 2 PATCH TOPICAL (08:44)
[2025-06-03] MEDS: CELEBREX 200 MG PO (08:44)
[2025-06-03] MEDS: LASIX PO ×2 (08:44→20:22)
[2025-06-03] MEDS: COLACE 100 MG PO ×2 (08:44→20:22)
[2025-06-03] MEDS: DECADRON 4 MG PO ×2 (08:44→20:22)
[2025-06-03] MEDS: PROSCAR 5 MG PO (08:45)
[2025-06-03] MEDS: PROTONIX 40 MG PO (08:45)
[2025-06-03] MEDS: WELLBUTRIN XL (24 hour extended release) 300 MG PO (08:45)
[2025-06-03] MEDS: SENOKOT 17.2 MG PO ×2 (08:45→20:23)
--- NOTE | 2025-06-03 10:13 | CM ---
CM met with patient. Patient is agreeable to [facility]. Referral sent to [facility] account liaison.
PLAN: Home with [facility].
--- NOTE | 2025-06-03 10:14 | W.PN.ORTHO ---
Today's Communication / Plan
-
Transfuse 2 units of PRBCs w/ Lasix in between.
Trend hgb.
Work w/ PT and OT when able.
D/c when clinically stable.
Assessment
.
Distal Motor Intact: Yes
Dressing:
Clean, dry and intact.
Assessment:
R knee OA s/p R TKA w/ Dr Levi 06/02/25
- s/p L TKA 01/2021 at an outside facility
DVT prophylaxis - ASA, b/l venous foot pumps
Myelodysplastic syndrome
Chronic anemia
- H&H POD 1 6.3 2* above and acute surgical blood loss -> transfuse 2 units w/ Lasix in between to prevent fluid overload
- Repeat H&H tonight and POD 2
- Continue Aranesp q3w
Chronic lymphedema - resumed Lasix w/ SBP parameters to minimize post-surgical hypotension
GERD - continue PPI therapy
Irritable bowel w/ constipation
History of bowel adhesions
- Adequate hydration advised
- Early mobility as tolerated
- Minimize opioids as able
- Colace/Senna BID w/ MOM HS prn
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
- Work w/ PT and OT as able
BPH - voiding appropriately w/ measures below
- Continue Finasteride
- Flomax HS during admission
Chronic pain - pt advised to talk to pain software licensing specialist pre-op re: opioid Rx post-op
- Multimodal pain approach to include Tylenol, Celebrex, Decadron, Gabapentin HS, Lidocaine patches
- Does confirm 'plenty' of Oxycodone at home
- Confirms f/u visit w/ pain mgmt a few days after surgery
Colon polyps
Diverticulosis
Nephrolithiasis
Degenerative disc disease with spinal stenosis
Scoliosis
Depression
Anxiety
Osteopenia
[place]
Recent tobacco abuse
Plan
.
Surgery / Date: R TKA w/ Dr Levi 06/02/25
DVT Prophylaxis: Aspirin
Activity:
Out of bed.
PT/OT
Discharge Plan: Home w/ [facility]N (initially per patient preference)
Subjective
.
.:
Patient examined in bed this AM.
Hgb notably low (6.3) in the setting of known myelodysplastic syndrome, surgical blood loss.
Does report overwhelming fatigue since surgery, likely 2* above.
Vital Signs and Labs
.
Vital Signs and Labs:
Lab Results
05/12/25 12:45
Temp Pulse Resp BP Pulse Ox
98.7 F 85 16 123/52 99
06/03/25 07:10 06/03/25 07:10 06/03/25 07:10 06/03/25 07:10 06/03/25 07:10
Non-invasive Hgb result: 9.7
Physical Exam
-
HEENT: No pallor, cyanosis, or jaundice. Throat clear.
NECK: Supple. No JVD.
RESPIRATORY: Lungs clear to auscultation.
CVS: S1, S2 normal. RRR.�
ABDOMEN: Soft, non-tender. No distension.
EXTREMITIES: Strength equal, no calf pain with palpation/dorsiflexion. Calves soft.
IT SERVICE DELIVERY MANAGER: AOx3. No focal deficits. roving hauler grossly intact
--- NOTE | 2025-06-03 12:41 | VNURNOTE ---
Spray Gun Repairer Helper met with patient to discuss [facility] nurse[facility]therapy, visits, schedule and homebound status. Patient is agreeable and understands that visits at home will be 2-3 x per week to assess and teach medical management.
Patient is aware that [facility] will contact them for start of care in 1-2 days after discharge from .
[facility] referral completed in [facility].
[2025-06-03] MEDS: LASIX 10 MG IV (14:48)
[2025-06-03] MEDS: VITAMIN D3 (cholecalciferol) 125 MCG PO (17:36)
[2025-06-03] MEDS: ROXICODONE 10 MG PO (20:23)
[2025-06-03] MEDS: REMOVE LIDOCAINE PATCH 2 PATCH REMOVE (20:30)
[2025-06-03 21:34] LABS: Hematocrit 22.7 % (39.0-52.0); Hemoglobin 7.5 g/dL (13.0-18.0)
[2025-06-03] MEDS: NEURONTIN 300 MG PO (22:37)
[2025-06-03] MEDS: FLOMAX 0.4 MG PO (22:38)
[2025-06-04] MEDS: TYLENOL 650 MG PO ×5 (00:44→19:25)
[2025-06-04 00:45] LABS: Glucose - Point of Care 175 mg/dl (70-99)
[2025-06-04] MEDS: LINZESS 145 MCG PO (05:51)
[2025-06-04 06:34] LABS: Hematocrit 22.2 % (39.0-52.0); Hemoglobin 7.4 g/dL (13.0-18.0)
[2025-06-04 07:00] VITALS: BP 126/58
--- NOTE | 2025-06-04 09:20 | CM ---
CM reviewed medical records. Pending medical clearance for discharge. CM will continue to follow.
PLAN: Home vs. SNF
[2025-06-04] MEDS: LASIX PO ×2 (09:36→19:31)
[2025-06-04 10:43] VITALS: BP 99/72
[2025-06-04] MEDS: ASPIRIN 325 MG PO (10:44)
[2025-06-04] MEDS: LIDOCAINE 4% PATCH 2 PATCH TOPICAL (10:45)
[2025-06-04] MEDS: DECADRON 4 MG PO ×2 (10:45→19:25)
[2025-06-04] MEDS: COLACE 100 MG PO ×2 (10:45→19:25)
[2025-06-04] MEDS: CELEBREX 200 MG PO (10:45)
[2025-06-04] MEDS: BENTYL 20 MG PO ×3 (10:45→21:00)
[2025-06-04] MEDS: PROSCAR 5 MG PO (10:46)
[2025-06-04] MEDS: WELLBUTRIN XL (24 hour extended release) 300 MG PO (10:46)
[2025-06-04 10:47] LABS: Troponin I < 0.012 ng/ml
[2025-06-04] MEDS: PROTONIX 40 MG PO (10:47)
[2025-06-04] MEDS: SENOKOT 17.2 MG PO ×2 (10:47→19:25)
[2025-06-04] MEDS: TYLENOL PO ×2 (11:11→23:56)
--- NOTE | 2025-06-04 11:53 | W.PN.ORTHO ---
Today's Communication / Plan
-
Trend hgb and troponin.
Work w/ PT and OT as able.
D/c when clinically stable.
Assessment
.
Distal Motor Intact: Yes
Dressing:
Clean, dry and intact.
Assessment:
R knee OA s/p R TKA w/ Dr Levi 06/02/25
- s/p L TKA 01/2021 at an outside facility
DVT prophylaxis - ASA, b/l venous foot pumps
Chest discomfort POD 2 radiating up to neck, non-productive cough - r/o cardiac and pulm causes
- EKG NSR
- Troponin neg. Will trend
- CXR WNL. Lungs CTA
- Of note, pt has various spinal/musculoskeletal issues. Did order low dose Baclofen BIDPRN for muscle spasms and did advise more frequent use of Oxycodone. Pt has rarely been taking Oxy since admission
- Cough: Encouraged hydration. Cepacol lozenges prn
Hot and cold 'sweats' - assuming mild reaction from transfusion yesterday vs steroids
- Pt afebrile
- Monitor
Chronic lymphedema - resumed Lasix w/ SBP parameters to minimize post-surgical hypotension
GERD - continue PPI therapy
Irritable bowel w/ constipation
History of bowel adhesions
- Adequate hydration advised
- Early mobility as tolerated
- Minimize opioids as able
- Colace/Senna BID w/ MOM HS prn
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
- Work w/ PT and OT as able
Myelodysplastic syndrome
Chronic anemia
- Of note, baseline hgb reportedly 8-low 9s
- H&H 6.3 POD 1 - > 7.4 POD 2. Continue to trend H&H.
- Continue Aranesp q3w
- Will repeat outpatient labs w/ heme next week
BPH - voiding appropriately w/ measures below
- Continue Finasteride
- Flomax HS during admission
Chronic pain - pt advised to talk to pain land conservation specialist pre-op re: opioid Rx post-op
- Multimodal pain approach to include Tylenol, Celebrex, Decadron, Gabapentin HS, Lidocaine patches
- Does confirm 'plenty' of Oxycodone at home
- Confirms f/u visit w/ pain mgmt a few days after surgery
Colon polyps
Diverticulosis
Nephrolithiasis
Degenerative disc disease with spinal stenosis
Scoliosis
Depression
Anxiety
Osteopenia
[place]
Recent tobacco abuse
Plan
.
Surgery / Date: R TKA w/ Dr Levi 06/02/25
DVT Prophylaxis: Aspirin
Activity:
Out of bed.
PT/OT
Discharge Plan: Home w/ VN (vs SNF)
Subjective
.
.:
Patient examined resting in bed.
Multiple concerns this AM. See assessment.
Hgb 6.3 -> 7.4 this AM.
Vital Signs and Labs
.
Vital Signs and Labs:
Lab Results
06/04/25 05:14
05/12/25 12:45
Temp Pulse Resp BP Pulse Ox
97.6 F 93 16 99/72 95
06/04/25 10:43 06/04/25 10:46 06/04/25 10:43 06/04/25 10:46 06/04/25 10:43
Non-invasive Hgb result: 8.5
Physical Exam
-
HEENT: No pallor, cyanosis, or jaundice. Throat clear.
NECK: Supple. No JVD.
RESPIRATORY: Lungs clear to auscultation.
CVS: S1, S2 normal. RRR.
ABDOMEN: Soft, non-tender. No distension.
EXTREMITIES: Expected post-surgical swelling. No calf pain with palpation/dorsiflexion. Calves soft.
HYDRAULIC JACK OPERATOR: AOx3. locum tenens psychiatrist grossly intact
[2025-06-04 12:04] VITALS: BP 108/60; BP 123/64; BP 84/49; PULSE 101; PULSE 91; PULSE 95; O2SAT 99
[2025-06-04 12:07] VITALS: BP 108/60; BP 123/64; BP 84/49; PULSE 91; PULSE 95; O2SAT 99
[2025-06-04] MEDS: ROXICODONE 5 MG PO (12:20)
--- NOTE | 2025-06-04 13:20 | CM ---
Addendum entered by Fawn Sarabia RN 06/04/25 13:56:
[facility] has accepted patient. Patient will need authorization for placement when medically ready.
Chiqui
Dr. Avery Puckett

Original Note:
CM spoke with patient regarding placement. CM sent referrals to [facility], [facility]. Patient's sister works at [facility] and that would be the patient's first choice.
PLAN: SNF, [facility] is first Choice if accepted.
[2025-06-04 15:00] VITALS: BP 115/53
[2025-06-04] MEDS: NSS 500 IV (15:02)
[2025-06-04 17:19] LABS: Troponin I < 0.012 ng/ml
[2025-06-04] MEDS: VITAMIN D3 (cholecalciferol) 125 MCG PO (17:52)
[2025-06-04] MEDS: NEURONTIN 300 MG PO (21:00)
[2025-06-04] MEDS: REMOVE LIDOCAINE PATCH 2 PATCH REMOVE (21:00)
[2025-06-04] MEDS: FLOMAX 0.4 MG PO (21:00)
[2025-06-04 22:31] LABS: Troponin I < 0.012 ng/ml
[2025-06-04 23:38] VITALS: BP 87/58
[2025-06-05] VITALS (7 sets, daily range): BP systolic 106–127; BP diastolic 51–66; PULSE 83
[2025-06-05] MEDS: TYLENOL 650 MG PO ×5 (05:00→21:00)
[2025-06-05] MEDS: LINZESS 145 MCG PO (05:20)
[2025-06-05 06:49] LABS: Hematocrit 22.0 % (39.0-52.0); Hemoglobin 7.2 g/dL (13.0-18.0)
[2025-06-05] MEDS: BENTYL 20 MG PO ×3 (08:53→21:30)
[2025-06-05] MEDS: WELLBUTRIN XL (24 hour extended release) 300 MG PO (08:54)
[2025-06-05] MEDS: CELEBREX 200 MG PO (08:55)
[2025-06-05] MEDS: PROTONIX 40 MG PO (08:55)
[2025-06-05] MEDS: ASPIRIN 325 MG PO (08:56)
[2025-06-05] MEDS: PROSCAR 5 MG PO (08:56)
[2025-06-05] MEDS: DECADRON 4 MG PO (08:56)
[2025-06-05] MEDS: COLACE 100 MG PO ×2 (08:56→21:00)
[2025-06-05] MEDS: SENOKOT 17.2 MG PO ×2 (08:56→21:00)
[2025-06-05] MEDS: LIDOCAINE 4% PATCH 2 PATCH TOPICAL (08:57)
[2025-06-05] MEDS: LASIX PO ×2 (09:09→21:29)
--- NOTE | 2025-06-05 09:23 | W.PN.ORTHO ---
Today's Communication / Plan
-
Assessment:
R knee OA s/p R TKA w/ Dr Levi 06/02/25
- s/p L TKA 01/2021 at an outside facility
DVT prophylaxis - ASA, b/l venous foot pumps
Chest discomfort POD 2 radiating up to neck, non-productive cough - r/o cardiac and pulm causes
- EKG NSR
- Troponin neg. Will trend, continue negative
- CXR WNL. Lungs CTA
- Of note, pt has various spinal/musculoskeletal issues. Did order low dose Baclofen BIDPRN for muscle spasms and did advise more frequent use of Oxycodone. Pt has rarely been taking Oxy since admission
- Cough: Encouraged hydration. Cepacol lozenges prn
Hot and cold 'sweats' - assuming mild reaction from transfusion yesterday vs steroids
- Pt afebrile
- Monitor
Chronic lymphedema - resumed Lasix w/ SBP parameters to minimize post-surgical hypotension
GERD - continue PPI therapy
Irritable bowel w/ constipation
History of bowel adhesions
- Adequate hydration advised
- Early mobility as tolerated
- Minimize opioids as able
- Colace/Senna BID w/ MOM HS prn
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
- Work w/ PT and OT as able
Myelodysplastic syndrome
Chronic anemia
- Of note, baseline hgb reportedly 8-low 9s
- H&H 6.3 POD 1 - > 7.4 POD 2. Continue to trend H&H. Transfusion 2 units; currently 7.2/22.0, stable.
- Continue Aranesp q3w
- Will repeat outpatient labs w/ heme next week
BPH - voiding appropriately w/ measures below
- Continue Finasteride
- Flomax HS during admission
Chronic pain - pt advised to talk to pain call center specialist pre-op re: opioid Rx post-op
- Multimodal pain approach to include Tylenol, Celebrex, Decadron, Gabapentin HS, Lidocaine patches
- Does confirm 'plenty' of Oxycodone at home
- Confirms f/u visit w/ pain mgmt a few days after surgery
PT recommending SNF d/c; accepted at [facility]; plan for DC today
Colon polyps
Diverticulosis
Nephrolithiasis
Degenerative disc disease with spinal stenosis
Scoliosis
Depression
Anxiety
Osteopenia
IGIUGIG
Recent tobacco abuse
Assessment
.
Distal Motor Intact: Yes
Dressing:
Clean, dry and intact.
Plan
.
Surgery / Date: R TKA w/ Dr Levi 06/02/25
Activity:
Out of bed.
PT/OT
Subjective
.
.:
Patient resting comfortably.
Vital Signs and Labs
.
Vital Signs and Labs:
Lab Results
06/05/25 06:01
05/12/25 12:45
Temp Pulse Resp BP Pulse Ox
97.9 F 82 16 115/51 96
06/05/25 07:25 06/05/25 09:09 06/05/25 07:25 06/05/25 09:09 06/05/25 07:25
Non-invasive Hgb result: 8.5
--- NOTE | 2025-06-05 09:35 | W.DCSUMMARY ---
Discharge Summary
Discharge Data
Date of Admission: 06/02/25
Date of Discharge: 06/06/25
Total time spent discharging patient (in min): 45
-
Pending Results: No
Hospital Course
The patient underwent right total knee arthroplasty [address] Levi without complications. The patient recovered in the PACU and was transferred to the floor. Postoperative day 1 patient was transfused 2 units of packed red blood
cells with Lasix due to baseline myelodysplastic syndrome and chronic anemia with hemoglobin dropping from 9-6.3. Unremarkable EKG and troponins as well as chest x-ray while admitted for mild chest discomfort which has improved at time of discharge
on the day of discharge his hemoglobin was stable with increased after transfusion to 7.5 trended to 7.2.. On 05 June 2025 patient report anxiety regarding delay in acceptance at his retirement facility with anticipated discharge that day
but was delayed to at least 06 June 2025. 2 mg of Ativan was ordered and the patient reported confusion at approximately 2150. Suspected polypharmacy with negative head CT and urinalysis and back at baseline on the morning of 06 June
2024. At the time of discharge, the patient was noted to be tolerating a regular diet, ambulating with adherence to weightbearing and activity restrictions, able to accomplish activities of daily living at baseline level, and had pain controlled on
oral medications. Inpatient physical therapy evaluation and recommendations were for transition to retirement facility. Prior to discharge, the patient was provided with appropriate discharge/follow-up/return instructions, and discharge
medications
Discharge Plan
-
Patient Disposition: Home (Routine Discharge)
Discharge Diagnosis/Procedures: R knee OA s/p R TKA w/ Dr Levi 06/02/25
Condition: Good
Diet: Regular
Additional Diets: Adequate hydration, minimize opioids, and wear TEDs stockings to prevent low blood pressure/dizziness
Activity: With assistance and With Walker
Driving Restrictions: Not until seen by your Dr
Bathing Restrictions: OK to Shower
Blood Work: CBC w/o diff (ATTN: Hemoglobin) 06/07/25 w/ results to Dr Jr Lewis and Dr Cristino Levi
Other Services: PT and OT
Wound Care: Leave dressing on until seen by surgeon's office for follow-up in 2 weeks
Stand Alone Forms: Total Hip/Knee Replacement D/C
Referrals:
Ej Bocsh CRNP [Family Provider]
Cristino Levi MD [Active, Orthopedics] - in two weeks
Referral Note: If not already scheduled, call to make a follow-up appointment.
Jr Lewis MD [Active, Hematology / Oncology]
Additional Discharge Medication Instructions: TAKE BOWEL MEDS DIRECTED UNTIL HAVING REGULAR BMs TO AVOID OBSTRUCTION (regardless of oral intake).
Prescriptions:
New
mupirocin 2 % ointment
1 applic topical BID Qty: 1 0RF
Patient Comments:
Patient started this medication administration on 05/30/25 in the afternoon. Patient administered this medication today 06/02/25 @ 04:30.
celecoxib 200 mg capsule
200 mg PO DAILY Qty: 14 0RF
Rx Instructions:
*POST-OP USE ONLY
*take with food
gabapentin 300 mg capsule
300 mg PO HS Qty: 10 0RF
Rx Instructions:
*POST-OP USE ONLY
ondansetron 4 mg tablet,disintegrating
4 mg PO Q6H PRN (Reason: n/v) Qty: 20 0RF
Rx Instructions:
take 1/2h b/f pain med if recurrent nausea
allow to dissolve in mouth w/o water
aspirin 325 mg Tablet
325 mg PO DAILY Qty: 30 0RF
Rx Instructions:
Take daily x4 weeks for blood clot prevention.
docusate sodium 100 mg Capsule
100 mg PO BID Qty: 30 0RF
lidocaine 4 % Adhesive Patch,Medicated
2 patch topical DAILY Qty: 30 0RF
Rx Instructions:
Over the counter. Apply to sides of right knee/thigh.
DO NOT place over incision.
baclofen 5 mg Tablet
2.5 mg PO BID PRN (Reason: muscle spasms) Qty: 10 0RF
Rx Instructions:
Caution with Oxycodone - can cause drowsiness.
Use sparingly
magnesium hydroxide [Milk of Magnesia] 400 mg/5 mL Suspension
30 ml PO HS PRN (Reason: constipation) Qty: 3780 0RF
Rx Instructions:
Add to bowel regimen of Colace and Senna should no bowel movement occur within 24 hours of discharge.
sennosides [Leighann-sabine] 8.6 mg Tablet
17.2 mg PO BID Qty: 30 0RF
acetaminophen 325 mg Tablet
650 mg PO Q4HWA Qty: 60 0RF
Rx Instructions:
DO NOT exceed >4000 mg daily.
oxycodone 5 mg tablet
5 - 10 mg PO Q6H PRN (Reason: moderate-severe pain) Qty: 15 0RF
Rx Instructions:
1 tab for moderate pain, 2 if severe.
Continued
dicyclomine 20 mg Tablet
20 mg PO TID
Patient Comments:
Takes in morning,dinnertime and bedtime
cholecalciferol (vitamin D3) [Vitamin D3] 25 mcg (1,000 unit) Capsule
125 mcg PO QPM
omeprazole 20 mg Tablet,Delayed Release (Dr/Ec)
20 mg PO DAILY
Centrum Silver Men 300-600-300 mcg Tablet
1 tab PO QPM
PreserVision AREDS-2 250-90-40-1 mg Capsule
1 cap PO DAILY
bupropion HCl 150 mg tablet extended release 24 hr
300 mg PO DAILY
magnesium, potassium aspartate 250-250 mg Capsule
1 cap PO BID
Fiber Therapy (ca polycarboph)
2 cap PO BID
Aranesp (in polysorbate) 25 mcg/mL Solution
50 mcg SC .[id number]
finasteride 5 mg Tablet
5 mg PO DAILY
ascorbic acid (vitamin C) [Vitamin C] 1,000 mg Tablet
1 g PO DAILY
Linzess 145 mcg Capsule
145 mcg PO DAILY @ 0600 Qty: 30 1RF
furosemide 20 mg Tablet
20 mg PO BID Qty: 0 0RF
Rx Instructions:
HOLD IF systolic blood pressure <115 while on post-surgical pain meds.
Held
omega 4-xet-vcq-fish oil [Fish Oil] 1,200 (144-216) mg Capsule
1 cap PO BID
Hold Instructions: Resume on 06/09/25.
hesperidin-diosmin 500 mg Capsule
4 cap PO DAILY
Hold Instructions: Resume on 06/09/25.
Discontinued
acetaminophen [Tylenol 8 Hour] 650 mg tablet extended release
650 mg PO Q8H PRN (Reason: Mild pain) Qty: 30 0RF
oxycodone-acetaminophen 5-325 mg Tablet
1 tab PO TID PRN (Reason: pain)
Discharge Orders:
Discharge Patient (As Directed); Ordered 06/05/25
Ordered By: Connor Duncan
Discharge Date and Time
Print Language: ROMANSH
--- NOTE | 2025-06-05 13:57 | CM ---
Addendum entered by Page Lane 06/05/25 13:59:
Chiqui
Dr. Avery Puckett

Original Note:
CM called to [facility], no bed available today, bed available tomorrow pending auth. Liaison states that she will be able to place patient tomorrow. CM will call to obtain auth. CM will continue to follow for discharge planning needs.
Plan; SNF tomorrow pending auth.
[2025-06-05] MEDS: ATIVAN 2 MG PO (15:59)
[2025-06-05] MEDS: VITAMIN D3 (cholecalciferol) 125 MCG PO (17:46)
[2025-06-05] MEDS: ROXICODONE 5 MG PO (18:52)
[2025-06-05] MEDS: REMOVE LIDOCAINE PATCH 2 PATCH REMOVE (21:00)
[2025-06-05] MEDS: NEURONTIN 300 MG PO (21:30)
[2025-06-05] MEDS: FLOMAX 0.4 MG PO (21:30)
--- NOTE | 2025-06-05 21:51 | PTCARENOTE ---
Patient observed with episodes of confusion overnight, calling his family, believing that he was at home in his condo, rather than in the hospital, and trying to get OOB at times. Bed alarm placed and provider notified. VSS. Pt. verbally agitated at
times stating that 'he's depressed and upset' and 'it's not fair that the soap operas that he watches, which have his friends in them, have things so easy in their lives while his life is so hard.' Pt. reoriented to place and time. Pt. then stated
that he had been at a dinner alliance party in his condo just an hour ago and was sad he was missing it. Pt. has been admitted to the hospital since 06/02. Upon chart review, pt. did receive a one time dose of ativan for anxiety during AM shift as well as a
dose of PRN roxicodone for leg pain related to surgery. Pt. denies pain at this time and is resting in bed comfortably. Plan of care ongoing.
[2025-06-06 00:03] LABS: Urine Character Clear (Clear)
[2025-06-06] MEDS: TYLENOL PO ×3 (01:27→19:44)
--- NOTE | 2025-06-06 03:00 | W.PN.UPDATE ---
Update Note
Progress Note Update
2149 RN reported that at change of shift pt acting confused. Pt trying to get OOB by himself. He thinks he is at his condo. PT described as AAOX3 usually.
Received ativan po approx 1500 and oxycodone around dinner. He normally takes oxy at home but ativan seems new. Confusion likely due to polypharmacy. But will check CT head (hx craniotomy) and UA ( in a march 2023 admit had some confusion with UTI).
0000 UA neg, Head Ct neg for abnormalities
[2025-06-06] MEDS: LINZESS 145 MCG PO (05:55)
[2025-06-06 07:20] VITALS: BP 115/70
[2025-06-06] MEDS: LIDOCAINE 4% PATCH 2 PATCH TOPICAL (09:01)
[2025-06-06] MEDS: CELEBREX 200 MG PO (09:01)
[2025-06-06] MEDS: PROTONIX 40 MG PO (09:02)
[2025-06-06] MEDS: WELLBUTRIN XL (24 hour extended release) 300 MG PO (09:02)
[2025-06-06] MEDS: SENOKOT 17.2 MG PO ×2 (09:02→19:43)
[2025-06-06] MEDS: TYLENOL 650 MG PO ×3 (09:03→15:22)
[2025-06-06] MEDS: ASPIRIN 325 MG PO (09:03)
[2025-06-06] MEDS: BENTYL 20 MG PO ×2 (09:04→15:22)
[2025-06-06] MEDS: PROSCAR 5 MG PO (09:04)
[2025-06-06] MEDS: LASIX PO (09:04)
[2025-06-06] MEDS: COLACE 100 MG PO ×2 (09:04→19:43)
--- NOTE | 2025-06-06 10:17 | W.PN.UPDATE ---
Update Note
Progress Note Update
Patient seen and examined this morning. Discharge order placed yesterday however no bed availability at SNF and was delayed. Ativan was ordered for near panic attack episode with history of anxiety per RN; patient had some increased confusion
overnight which has since resolved with negative workup by the hospitalist which was appreciated. He is at baseline alert and oriented this morning. He is planned for discharge again with no changes recommended and his current treatment plan.
[2025-06-06 12:25] VITALS: BP 109/66; BP 115/55; BP 97/55; BP 97/62; PULSE 102; PULSE 106; O2SAT 95
--- NOTE | 2025-06-06 13:47 | CM ---
Addendum entered by Page [address] 06/06/25 14:25:
Auth approved from Allyson [id number] 06/06-06/10 next review 06/10 and call updated clinicals to . CM called auth to Martha liaison at [facility] and auth for ambulance to acute care is [id number]. please call report to [phone]/fax
[phone]. CM will review IMM with patient and complete ambulance transportation forms
Original Note:
CM called to start auth and was told that, tess would call back to start auth. CM confirmed bed available at [facility] today.
[2025-06-06 15:00] VITALS: BP 98/57
[2025-06-06] MEDS: VITAMIN D3 (cholecalciferol) 125 MCG PO (17:20)
[2025-06-06 17:24] VITALS: BP 128/62
[2025-06-06] MEDS: LASIX 20 MG PO (19:43)
--- NOTE | 2025-06-06 19:48 | PTCARENOTE ---
EMS to [facility] pt transfer to SNF, vs taken,meds administered except tylenol which pt refused no pain and patches left on right knee .IV pulled and facility notified of patches at pts request for comfort .
== END 2025-06-06 19:50 | disposition home or self-care (01) | DRG 470 ==
LOC: 2 SOUTH 08:51
PROVIDERS: Nurse Practitioner Family; Physician Assistant; Physician Assistant Surgical; ADMITTING PHYSICIAN Orthopaedic Surgery
PROC: 0SRC0J9 Replacement of Right Knee Joint with Synthetic Substitute, Cemented, Open Approach (ICD-10-PCS; 2025-06-02)
PROC: 30233N1 Transfusion of Nonautologous Red Blood Cells into Peripheral Vein, Percutaneous Approach (ICD-10-PCS; 2025-06-03)
DX: M17.11 Unilateral primary osteoarthritis, right knee (principal); K58.9 Irritable bowel syndrome, unspecified; K21.9 Gastro-esophageal reflux disease without esophagitis; D46.9 Myelodysplastic syndrome, unspecified; G89.29 Other chronic pain; M85.80 Other specified disorders of bone density and structure, unspecified site; G93.89 Other specified disorders of brain; I89.0 Lymphedema, not elsewhere classified; N40.0 Benign prostatic hyperplasia without lower urinary tract symptoms; M41.9 Scoliosis, unspecified; F41.9 Anxiety disorder, unspecified; F32.A Depression, unspecified; R41.0 Disorientation, unspecified; Z90.49 Acquired absence of other specified parts of digestive tract; Z87.442 Personal history of urinary calculi; Z87.891 Personal history of nicotine dependence; Z86.0100 Personal history of colon polyps, unspecified
CPT/HCPCS: 36415; 70450; 71046; 73560; 80053; 81003; 82962; 83036; 84484; 85014; 85018; 85027; 86850; 86900; 86901; 86920; 87070; 93005; 97110; 97163; 97167; 97530; 97535; 99406; C1713; C1776; P9016

== ENCOUNTER → 2025-07-07 14:06 | Outpatient (REF) | payer OTHER, SELFPAY | LOC: PAVMRI 14:06 | PROVIDERS: ATTENDING PHYSICIAN Internal Medicine Nephrology | DX: M54.16 Radiculopathy, lumbar region (principal) | CPT/HCPCS: 72148 ==